=== PATIENT | male | born 1960 | race Caucasian/White ===

== ENCOUNTER → 2018-01-09 | Outpatient (CLI) | payer MEDICARE ==
[~2018-01-09] MED LIST: GABA400 PO; GLIP5 PO; HYDACE10B PO; LORA10 PO; MELO7.5 PO; METF850 PO; Prinivil10 MG PO; SIMV10 PO
== END | disposition home or self-care (01) ==
LOC: LAB SHORT 10:00 → LAB 10:00
PROVIDERS: Nurse Practitioner Adult Health
DX: Z12.5 Encounter for screening for malignant neoplasm of prostate (principal)
CPT/HCPCS: G0103

== ENCOUNTER → 2018-03-13 | Outpatient (CLI) | payer MEDICARE ==
[2018-03-13 10:01] LABS: BASOPHILS PERCENT AUTO 1 % (0-2); EOSINOPHILS ABSOLUTE AUTO 1.49 K/mm3 (0.00-0.68); EOSINOPHILS PERCENT AUTO 14 % (0-6); Hematocrit 34.7 % (37.0-53.0); Hemoglobin 11.1 g/dL (13.5-17.5); IMMATURE GRAN ABSOLUTE AUTO 0.05 K/mm3 (0.00-0.10); IMMATURE GRAN PERCENT AUTO 1 % (0-1); LYMPHOCYTES ABSOLUTE AUTO 1.34 K/mm3 (0.84-5.20); LYMPHOCYTES PERCENT AUTO 12 % (21-46); MONOCYTES ABSOLUTE AUTO 1.51 K/mm3 (0.16-1.47); MONOCYTES PERCENT AUTO 14 % (4-13); Mean Corpuscular HGB 29.1 pg (26.0-34.0); Mean Corpuscular Volume 91 fL (80-100); NEUTROPHILS PERCENT AUTO 59 % (41-73); RDW Coefficient Variation 13.4 % (11.7-14.2); RDW Standard Deviation 44.7 fL (35.1-46.3); Red Blood Cell Count 3.81 M/mm3 (4.30-5.90); White Blood Cell Count 10.99 K/mm3 (4.00-11.30)
[2018-03-13 10:35] LABS: Mean Platelet Volume 9.4 fL (9.1-12.4); Platelet Count 270 K/mm3 (150-400)
[2018-03-13 11:23] LABS: Alanine Aminotransfer (ALT/SGP 17 U/L (12-78); Albumin, Blood 3.1 g/dL (3.4-5.0); Albumin/Globulin Ratio 0.6 (0.8-1.8); Alk Phos 103 U/L (50-136); Anion Gap 6 mmol/L (6-16); Aspartate Aminotrans (AST/SGOT 17 U/L (12-37); Bilirubin, Total 0.3 mg/dL (0.1-1.0); Blood Urea Nitrogen 28 mg/dL (8-24); CO2, Blood 28 mmol/L (21-32); Calcium, Blood 8.8 mg/dL (8.5-10.1); Chloride, Blood 100 mmol/L (98-108); Globulin, Blood 4.8 g/dL (2.2-4.0); Glomerular Filtration Rate >60 (60-); Glucose, Blood 159 mg/dL (70-99); Potassium, Blood 4.8 mmol/L (3.5-5.5); Sodium, Blood 134 mmol/L (136-145); Total Protein, Blood 7.9 g/dL (6.4-8.2)
== END | disposition home or self-care (01) ==
LOC: LAB SHORT 09:49 → LAB EV 09:49
PROVIDERS: Physician Assistant Medical
DX: L03.031 Cellulitis of right toe (principal); J40 Bronchitis, not specified as acute or chronic
CPT/HCPCS: 80053; 85025

== ENCOUNTER → 2019-08-07 | Outpatient (CLI) | payer MEDICARE ==
[~2019-08-07] MED LIST changes: +OXYC1TAB11
== END | disposition home or self-care (01) ==
LOC: LAB SHORT 07:55 → PLD 07:55
DX: L60.2 Onychogryphosis (principal)
CPT/HCPCS: 88305; 88312

== ENCOUNTER 2024-03-04 10:48 | Inpatient (IN) | payer MEDICARE ==
[~2024-03-04] VITALS: Ht 182.9 cm; Wt 90.8 kg
[2024-03-04] MEDS ORDERED: Ketorolac Tromethamine 15mg Vial IV ONE (11:15)
[2024-03-04] MEDS ORDERED: HYDROmorphone HCl/Pf 1MG SYR IV ONE (11:15)
[2024-03-04 11:38] LABS: BASOPHILS ABSOLUTE AUTO 0.13 K/mm3 (0.00-0.23); BASOPHILS PERCENT AUTO 1 % (0-2); EOSINOPHILS PERCENT AUTO 1 % (0-6); Hematocrit 39.2 % (37.0-53.0); Hemoglobin 12.9 g/dL (13.5-17.5); IMMATURE GRAN ABSOLUTE AUTO 0.25 K/mm3 (0.00-0.10); IMMATURE GRAN PERCENT AUTO 1 % (0-1); LYMPHOCYTES ABSOLUTE AUTO 1.75 K/mm3 (0.84-5.20); LYMPHOCYTES PERCENT AUTO 8 % (21-46); MONOCYTES ABSOLUTE AUTO 2.37 K/mm3 (0.16-1.47); MONOCYTES PERCENT AUTO 11 % (4-13); Mean Corpuscular HGB 28.3 pg (26.0-34.0); Mean Corpuscular HGB Conc 32.9 g/dL (31.5-36.5); Mean Corpuscular Volume 86 fL (80-100); Mean Platelet Volume 9.1 fL (9.1-12.4); NEUTROPHILS ABSOLUTE AUTO 17.55 K/mm3 (1.96-9.15); NEUTROPHILS PERCENT AUTO 79 % (41-73); Platelet Count 401 K/mm3 (150-400); RDW Coefficient Variation 13.4 % (11.7-14.2); RDW Standard Deviation 42.5 fL (35.1-46.3); Red Blood Cell Count 4.56 M/mm3 (4.30-5.90); White Blood Cell Count 22.25 K/mm3 (4.00-11.30)
[2024-03-04 12:05] LABS: Albumin, Blood 2.6 g/dL (3.4-5.0); Albumin/Globulin Ratio 0.5 (0.8-1.8); Bilirubin, Total 0.4 mg/dL (0.1-1.0); Bun/Creatinine Ratio 21.5 (12.0-20.0); Calcium, Blood 8.4 mg/dL (8.5-10.1); Creatinine, Blood 0.93 mg/dL (0.60-1.20); Globulin, Blood 5.7 g/dL (2.2-4.0); Potassium, Blood 4.6 mmol/L (3.5-5.5); Total Protein, Blood 8.3 g/dL (6.4-8.2)
[2024-03-04] MEDS ORDERED: Vancomycin HCL 2,000 MG in NS 500 ML IV ONE (13:00)
[2024-03-04] MEDS ORDERED: HYDROmorphone HCl/Pf 1MG SYR IV PRN (13:40)
[2024-03-04] MEDS ORDERED: Cefepime HCl 2,000 MG in NS 100 ML IV SCH (14:00)
[2024-03-04] MEDS ORDERED: BASAGLAR K100 UNIT/8 SC (14:05)
[2024-03-04 16:57] VITALS: BP 83/57
[2024-03-04 16:59] VITALS: BP 120/65
[2024-03-04] MEDS ORDERED: OxyCODONE HCL 5 MG TAB PO PRN (17:40)
--- NOTE | 2024-03-04 17:57 | NUR ---
1638 RECEIVED PT TO RM 362 VIA M[facility] FROM ER. PT ABLE TO TX SELF TO BED. ADMITTED FOR DIABETIC R FOOT ULCER/INFECTION. WOUND STARTED ABOUT 1 WEEK AGO, PER ER REPORT, JOSEFINA BARON. PT TO DR ARIAS TODAY AND SENT TO ER WITH OPEN ULCER. PT STEPPED ON REJI 1.5 MONTHS AGO. R FOOT IS ANGRY RED, SWOLLEN, AND HOT TO TOUCH. PT ADMITTED BY DR HAIRSTON. ARRIVED TO UNIT NPO. DR HAIRSTON NOTIFIED FOR DIET. PT TO BE NPO UNTIL SEEN BY PODIATRY. CONSULT ORDERED PER DR HAIRSTON. DR SANTACRUZ NOTIFIED AT 1725; PT OK TO EAT AND DRINK. DR SANTACRUZ WILL SEE PT TONIGHT. DR HAIRSTON NOTIFIED FOR PAIN MEDICATION AND NICOTINE PATCH; NEW ORDERS PLACED. R FOOT PICTURE TAKEN AND PLACED IN CHART. U/S TECH TO AT THIS TIME, PER ORDERS. PT DENIES FURTHER NEEDS AT THIS TIME. CALL LT IN REACH.
[2024-03-04] MEDS ORDERED: Nicotine 21 MG PATCH TOP SCH (18:20)
[2024-03-04 20:02] VITALS: BP 109/90
[2024-03-04] MEDS ORDERED: Insulin Glargine-Yfgn 100 Unit/mL 3 ML SYR SC SCH (21:00)
[2024-03-04] MEDS ORDERED: NS 250 ML IV PRN (23:55)
[2024-03-05] VITALS (13 sets, daily range): BP systolic 103–139; BP diastolic 61–102
[2024-03-05] MEDS ORDERED: Insulin Regular 100 UNIT/ML 10ML Vial SC SCH
[2024-03-05] MEDS ORDERED: Vancomycin HCL 1,250 MG in NS 250 ML IV SCH (01:00)
[2024-03-05 05:52] LABS: BASOPHILS ABSOLUTE AUTO 0.11 K/mm3 (0.00-0.23); BASOPHILS PERCENT AUTO 1 % (0-2); EOSINOPHILS ABSOLUTE AUTO 0.66 K/mm3 (0.00-0.68); EOSINOPHILS PERCENT AUTO 4 % (0-6); Hematocrit 36.8 % (37.0-53.0); Hemoglobin 11.8 g/dL (13.5-17.5); IMMATURE GRAN ABSOLUTE AUTO 0.17 K/mm3 (0.00-0.10); IMMATURE GRAN PERCENT AUTO 1 % (0-1); LYMPHOCYTES ABSOLUTE AUTO 1.68 K/mm3 (0.84-5.20); LYMPHOCYTES PERCENT AUTO 11 % (21-46); MONOCYTES PERCENT AUTO 11 % (4-13); Mean Corpuscular HGB Conc 32.1 g/dL (31.5-36.5); Mean Corpuscular Volume 87 fL (80-100); NEUTROPHILS ABSOLUTE AUTO 10.94 K/mm3 (1.96-9.15); NEUTROPHILS PERCENT AUTO 72 % (41-73); Platelet Count 366 K/mm3 (150-400); RDW Coefficient Variation 13.7 % (11.7-14.2); RDW Standard Deviation 44.1 fL (35.1-46.3); Red Blood Cell Count 4.22 M/mm3 (4.30-5.90); White Blood Cell Count 15.26 K/mm3 (4.00-11.30)
--- NOTE | 2024-03-05 06:29 | NUR ---
Shift Summary Pt. seen by Dr. Prince this shift who put him on the surgery schedule today for I&D. Pt has been NPO except for pain medicine since 0000. While Dr. Prince was in the room I clarified code status with the pt who states he wishes to remain full code. His R foot is still very painful, especially during and after ambulation to the bathroom. Medicated for pain per EMAR, pain well managed by PO medications and rest. He rcvd glargine at night we checked his blood sugars Q6 as he has Q6 Humalin coverage. He rcvd 2 units at 0000. He slept well t/o the night. AOx4, able to ambulate with 1 SBA, no acute changes.
[2024-03-05 06:36] LABS: Albumin, Blood 2.3 g/dL (3.4-5.0); Albumin/Globulin Ratio 0.4 (0.8-1.8); Bilirubin, Total 0.3 mg/dL (0.1-1.0); Bun/Creatinine Ratio 23.5 (12.0-20.0); Calcium, Blood 8.7 mg/dL (8.5-10.1); Creatinine, Blood 1.19 mg/dL (0.60-1.20); Globulin, Blood 5.2 g/dL (2.2-4.0); Potassium, Blood 4.3 mmol/L (3.5-5.5); Total Protein, Blood 7.5 g/dL (6.4-8.2)
[2024-03-05] MEDS ORDERED: Nicotine 21 MG PATCH TOP SCH (09:00)
[2024-03-05] MEDS ORDERED: Heparin Sodium,Porcine 5,000 UNIT/0.5 ML SDV SC SCH (09:00)
[2024-03-05] MEDS ORDERED: Atorvastatin 10 MG Tab PO SCH (09:00)
[2024-03-05 12:52] LABS: Vancomycin, Random 19.9 ug/mL
[2024-03-05] MEDS ORDERED: Vancomycin HCL 2,000 MG in NS 500 ML IV SCH (13:00)
--- NOTE | 2024-03-05 16:29 | NUR ---
SHIFT SUMMARY PT RESTING QUIETLY, WATCHING TV, DURING SHIFT REPORT. PT STILL WAITING FOR I&D THIS AFTERNOON. PT HAS BEEN NPO SINCE DINNER YESTERDAY. MEDICATED FOR C/O SEVERE PAIN TO R FOOT. PT REPORTS BEING UNABLE TO GET ON TOP OF PAIN. PLEASANT AND CO-OP WITH CARE. FAMILY IN RM TO VISIT IN AM AND AGAIN THIS AFTERNOON. DENTAL HYGIENIST IN TO SPEAK WITH PT EARLIER; DENTURE CUP AND SUPPLIES PROVIDED. IV ABX GIVEN THRU OUT THE DAY PER EMAR. NO FURTHER NEEDS AT THIS TIME. CALL LT IN REACH.
[2024-03-05] MEDS ORDERED: Lactated Ringer's 1,000 ML IV ONE (17:05)
[2024-03-05] MEDS ORDERED: TRULICITY3 MG/0.5 M SC (17:15)
--- NOTE | 2024-03-05 17:25 | NUR ---
INTO PACU/PRE-OP, CAOX4, VSS, CHEMBG 68. POOR CIRC TO FINGERS, COOL, DELAYED CAP REFILL, CONFIRMS NPO, CONFIRMS PLANNED SURGERY
[2024-03-05] MEDS ORDERED: Lidocaine HCL 1% 10 ML MDV ONE (17:34)
[2024-03-05] MEDS ORDERED: Bupivacaine 0.5% Inj 10 ML Vial ONE (17:34)
[2024-03-05] MEDS ORDERED: propofoL 20 ML IV ONE (17:39)
[2024-03-05] MEDS ORDERED: Lidocaine HCl 2% 20 ML MDV ONE (17:40)
[2024-03-05] MEDS ORDERED: FentaNYL Citrate 50 MCG/ML 2 ML Injection ONE (17:56)
--- NOTE | 2024-03-05 18:09 | NUR ---
1730 PT TAKEN DOWN TO OR FOR I&D ON R FOOT. PT ABLE TO TX SELF TO [facility] WHEN TAKEN DOWN. NIDIA CALLED TO CK ON PT; UPDATE GIVEN.
[2024-03-05] MEDS ORDERED: Ondansetron HCl 2 MG / ML 2ML Vial ONE (18:15)
[2024-03-06 02:02] VITALS: BP 131/76
--- NOTE | 2024-03-06 06:17 | NUR ---
Shift Summary Pt returned from PACU at the start of the shift. VSS t/o the recovery period, slight fever and elevated BP in the beginning. He was hypoglycemic in the PACU, they gave him juice while there and then I gave him a sandwitch and gatorade once he arrived here. By 2019 pt's BG was 107, his 0000 BG was 224 and he recieved 2 units regular insulin per sliding scale. Pt did c/o R foot pain once never block wore off, medicated per emar. He slept well t/o most of the night, using the urinal at the bedside to stay off his foot. He is AOx4, slept well t/o some of the night.
[2024-03-06 07:54] VITALS: BP 130/79
[2024-03-06 08:56] LABS: BASOPHILS ABSOLUTE AUTO 0.17 K/mm3 (0.00-0.23); BASOPHILS PERCENT AUTO 1 % (0-2); EOSINOPHILS ABSOLUTE AUTO 0.69 K/mm3 (0.00-0.68); EOSINOPHILS PERCENT AUTO 4 % (0-6); Hematocrit 33.1 % (37.0-53.0); Hemoglobin 10.9 g/dL (13.5-17.5); IMMATURE GRAN ABSOLUTE AUTO 0.32 K/mm3 (0.00-0.10); IMMATURE GRAN PERCENT AUTO 2 % (0-1); LYMPHOCYTES ABSOLUTE AUTO 2.18 K/mm3 (0.84-5.20); LYMPHOCYTES PERCENT AUTO 11 % (21-46); MONOCYTES ABSOLUTE AUTO 2.37 K/mm3 (0.16-1.47); MONOCYTES PERCENT AUTO 12 % (4-13); Mean Corpuscular HGB 28.2 pg (26.0-34.0); Mean Corpuscular HGB Conc 32.9 g/dL (31.5-36.5); Mean Corpuscular Volume 86 fL (80-100); Mean Platelet Volume 9.1 fL (9.1-12.4); NEUTROPHILS ABSOLUTE AUTO 14.16 K/mm3 (1.96-9.15); NEUTROPHILS PERCENT AUTO 71 % (41-73); Platelet Count 353 K/mm3 (150-400); RDW Coefficient Variation 13.7 % (11.7-14.2); RDW Standard Deviation 42.9 fL (35.1-46.3); Red Blood Cell Count 3.87 M/mm3 (4.30-5.90); White Blood Cell Count 19.89 K/mm3 (4.00-11.30)
[2024-03-06 09:11] LABS: Bun/Creatinine Ratio 26.1 (12.0-20.0); Calcium, Blood 8.3 mg/dL (8.5-10.1); Potassium, Blood 4.4 mmol/L (3.5-5.5)
[2024-03-06] MEDS ORDERED: Benzonatate 100 MG Cap PO PRN (11:40)
[2024-03-06 14:43] VITALS: BP 116/65
[2024-03-06] MEDS ORDERED: Insulin Regular 100 UNIT/ML 10ML Vial SC SCH (16:30)
--- NOTE | 2024-03-06 16:48 | NUR ---
THIS NURSE CALLED TO CLARIFY WOUND CARE/DRESSING ORDER. PROVIDER REQUESTED A CALL TO BE MADE TO . THIS NURSE CALLED AND WAS UNABLE TO MAKE CONTACT. CALL UNANSWERED AT THIS TIME.
--- NOTE | 2024-03-06 18:15 | NUR ---
SHIFT SUMMARY PT A&OX4, VSS, AMB W/ SBA, TOLERATING PO, VOIDING, AND PAIN MANAGED PER EMAR. NO UPDATE FROM PRIOR NOTE ABOUT WOUND CARE/DRESSING ORDER CLARIFICATION. PT WORKED W/ PT/OT THIS SHIFT AND TOLERATED IT WELL. NO OTHER ACUTE CHANGES. CALL LIGHT WITHIN REACH AND PT ABLE TO MAKE NEEDS KNOWN.
[2024-03-06 21:16] VITALS: BP 92/57
[2024-03-07 04:44] VITALS: BP 105/69
[2024-03-07 05:52] LABS: BASOPHILS ABSOLUTE AUTO 0.15 K/mm3 (0.00-0.23); BASOPHILS PERCENT AUTO 1 % (0-2); EOSINOPHILS ABSOLUTE AUTO 0.99 K/mm3 (0.00-0.68); EOSINOPHILS PERCENT AUTO 7 % (0-6); Hematocrit 32.1 % (37.0-53.0); Hemoglobin 10.4 g/dL (13.5-17.5); IMMATURE GRAN ABSOLUTE AUTO 0.35 K/mm3 (0.00-0.10); IMMATURE GRAN PERCENT AUTO 2 % (0-1); LYMPHOCYTES ABSOLUTE AUTO 2.51 K/mm3 (0.84-5.20); LYMPHOCYTES PERCENT AUTO 17 % (21-46); MONOCYTES ABSOLUTE AUTO 1.62 K/mm3 (0.16-1.47); MONOCYTES PERCENT AUTO 11 % (4-13); Mean Corpuscular HGB 27.4 pg (26.0-34.0); Mean Corpuscular HGB Conc 32.4 g/dL (31.5-36.5); Mean Corpuscular Volume 85 fL (80-100); Mean Platelet Volume 8.9 fL (9.1-12.4); NEUTROPHILS PERCENT AUTO 62 % (41-73); Platelet Count 333 K/mm3 (150-400); RDW Coefficient Variation 13.4 % (11.7-14.2); Red Blood Cell Count 3.79 M/mm3 (4.30-5.90); White Blood Cell Count 14.92 K/mm3 (4.00-11.30)
[2024-03-07 06:22] LABS: Bun/Creatinine Ratio 20.9 (12.0-20.0); C-REACTIVE PROTEIN, EXT RANGE 14.6 mg/dL (0.000-0.300); Calcium, Blood 8.8 mg/dL (8.5-10.1); Creatinine, Blood 1.1 mg/dL (0.60-1.20); Potassium, Blood 4.5 mmol/L (3.5-5.5)
--- NOTE | 2024-03-07 06:29 | NUR ---
SHIFT SUMMARY PATIENT TALKATIVE AND RECEPTIVE TO CARE. PATIENT APPEARED TO BE COMFORTABLE, WATCHING TV PROGRAMS. PATIENT WAS POLOITE AND SOCIAL WITH STAFF AND RECEPTIVE TO CARE. APPEARED TO SLEEP ON AND OFF THROUGH THE NIGHT. BED ON LOW POSITON, RAILS TIMES 2, CALL LIGHT WITHIN REACH.
[2024-03-07 07:33] VITALS: BP 136/76
--- NOTE | 2024-03-07 10:05 | NUR ---
THIS NURSE SPOKE TO TO INQUIRE ABOUT WOUND CARE/DRESSING ORDER. PER PROVIDER, DR. ARIAS IS TO ROUND ON PT TODAY TO ASSESS WOUND.
[2024-03-07 13:50] LABS: Vancomycin, Trough 16.4 ug/mL (5.0-10.0)
[2024-03-07 14:41] VITALS: BP 123/76
--- NOTE | 2024-03-07 17:51 | NUR ---
SHIFT SUMMARY FROM IR WAS CONSULTED AND ROUNDED ON THE PT. PT DECLINED INTERVENTION AT THIS TIME, SEE PROVIDER CONSULT NOTE. ROUNDED ON PT WELL AND CHANGED THE PT'S DRESSING. WOUND CARE ORDER RECEIVED AND IN EMAR. PAIN MANAGED PER EMAR. NO OTHER ACUTE CHANGES THIS SHIFT. CALL LIGHT WITHIN REACH AND PT ABLE TO MAKE NEEDS KNOWN.
[2024-03-07 19:53] VITALS: BP 128/64
[2024-03-08 03:05] VITALS: BP 126/64
[2024-03-08 05:13] LABS: Hematocrit 31.3 % (37.0-53.0); Hemoglobin 10.4 g/dL (13.5-17.5); Mean Corpuscular HGB Conc 33.2 g/dL (31.5-36.5); Mean Corpuscular Volume 84 fL (80-100); Mean Platelet Volume 9.3 fL (9.1-12.4); Platelet Count 352 K/mm3 (150-400); RDW Coefficient Variation 13.2 % (11.7-14.2); Red Blood Cell Count 3.72 M/mm3 (4.30-5.90); White Blood Cell Count 13.56 K/mm3 (4.00-11.30)
[2024-03-08 05:31] LABS: Bun/Creatinine Ratio 23.3 (12.0-20.0); Calcium, Blood 8.7 mg/dL (8.5-10.1); Creatinine, Blood 0.99 mg/dL (0.60-1.20); Potassium, Blood 4.2 mmol/L (3.5-5.5)
--- NOTE | 2024-03-08 05:31 | NUR ---
SHIFT SUMMARY PATIENT ALERT AND ORIENTATED TIMES 4. PATIENT REQUESTED OXY FOR PAIN AND ABLE TO MAKE NEEDS MET.PATIENT WAS SOCIAL WITH STAFF AND RECEPTIVE TO CARE. PATIENT APPEARED TO SLEEP ON AND OFF THROUGH THE NIGHT. BED IN LOW POSITION, RAILS TIMES 2, AND CALL LIGHT WITH IN REACH.
[2024-03-08 05:49] LABS: BAND PERCENT MAN 3 % (0-8); BASOPHILS ABSOLUTE MAN 0.13 K/mm3 (0.00-0.23); BASOPHILS PERCENT MAN 1 % (0-2); EOSINOPHILS ABSOLUTE MAN 1.22 K/mm3 (0.00-0.68); EOSINOPHILS PERCENT MAN 9 % (0-6); LYMPHOCYTES ABSOLUTE MAN 1.49 K/mm3 (0.84-5.20); LYMPHOCYTES PERCENT MAN 11 % (21-46); METAMYELOCYTE ABSOLUTE MAN 0.54 K/mm3 (0.00-0.00); METAMYELOCYTE PERCENT MAN 4 % (0-0); MONOCYTES ABSOLUTE MAN 1.22 K/mm3 (0.16-1.47); MONOCYTES PERCENT MAN 9 % (4-13); MYELOCYTE PERCENT MAN 3 % (0-0); NEUTROPHILS ABSOLUTE MAN 8.54 K/mm3 (1.96-9.15); SEG NEUTROPHILS PERCENT MAN 60 % (41-73); TOTAL CELLS COUNTED 100
[2024-03-08 07:34] VITALS: BP 126/74
[2024-03-08 15:52] VITALS: BP 116/76
--- NOTE | 2024-03-08 17:42 | NUR ---
SHIFT SUMMARY WOUND CARE/DRESSING CHANGE COMPLETED THIS SHIFT. PT AMB SEVERAL TIMES T/O SHIFT AND WAS ABLE TO SHOWER. PAIN MANAGED PER EMAR. NO OTHER ACUTE CHANGES. CALL LIGHT WITHIN REACH AND PT ABLE TO MAKE NEEDS KNOWN.
[2024-03-08 19:49] VITALS: BP 122/69
[2024-03-09 02:18] VITALS: BP 102/64
--- NOTE | 2024-03-09 04:11 | NUR ---
SHIFT SUMMARY PATIENT HAD NO ACUTE CHANGES. AXO X4 AND SBA TO BR. DENIES CHEST PAIN, SOB, AND N/V. VSS/AFEBRILE. REPORTED RIGHT FOOT PAIN X ONE AND OXYCODONE 5 MG GIVEN PER EMAR. PATIENT ABLE TO SLEEP WITH PAIN MANAGED. CBG 288. PIV INTACT. IV ABX INFUSED. CALL LIGHT IN REACH. BED IN LOWEST POSITION. WILL CONTINUE TO MONITOR UNTIL DAY SHIFT NURSE ASSUMES CARE.
[2024-03-09 05:06] LABS: Hematocrit 33.6 % (37.0-53.0); Mean Corpuscular HGB 27.8 pg (26.0-34.0); Mean Corpuscular HGB Conc 32.7 g/dL (31.5-36.5); Mean Corpuscular Volume 85 fL (80-100); Mean Platelet Volume 8.9 fL (9.1-12.4); Platelet Count 349 K/mm3 (150-400); RDW Coefficient Variation 13.2 % (11.7-14.2); RDW Standard Deviation 41.3 fL (35.1-46.3); Red Blood Cell Count 3.96 M/mm3 (4.30-5.90)
[2024-03-09 05:33] LABS: BAND PERCENT MAN 4 % (0-8); BASOPHILS PERCENT MAN 0 % (0-2); EOSINOPHILS ABSOLUTE MAN 0.57 K/mm3 (0.00-0.68); EOSINOPHILS PERCENT MAN 4 % (0-6); LYMPHOCYTES ABSOLUTE MAN 2.44 K/mm3 (0.84-5.20); LYMPHOCYTES PERCENT MAN 17 % (21-46); METAMYELOCYTE ABSOLUTE MAN 0.72 K/mm3 (0.00-0.00); METAMYELOCYTE PERCENT MAN 5 % (0-0); MONOCYTES ABSOLUTE MAN 1.87 K/mm3 (0.16-1.47); MONOCYTES PERCENT MAN 13 % (4-13); MYELOCYTE ABSOLUTE MAN 0.57 K/mm3 (0.00-0.00); MYELOCYTE PERCENT MAN 4 % (0-0); SEG NEUTROPHILS PERCENT MAN 53 % (41-73); TOTAL CELLS COUNTED 100
[2024-03-09 05:37] LABS: C-REACTIVE PROTEIN, EXT RANGE 7.15 mg/dL (0.000-0.300); Calcium, Blood 9.2 mg/dL (8.5-10.1); Potassium, Blood 4.3 mmol/L (3.5-5.5)
[2024-03-09 07:19] VITALS: BP 134/71
[2024-03-09 12:23] LABS: Vancomycin, Trough 17.8 ug/mL (5.0-10.0)
[2024-03-09 15:11] VITALS: BP 164/82
--- NOTE | 2024-03-09 18:16 | NUR ---
REPORT RECEIVED VERIFIED, A/O VSS , PT WAS VERY PLEASENT TODAY AND WAS AN UNEVENTFULL DAY. DRESSINGG TO RIGHT FOOT CHANGED PT FAVIOLA WELL WITH MINIMAL PAIN. RIGHT FOOT WAS CLEANSED WITH CLEANING SOLUTION ALLOWED TO DRY THEN PACK WITH 10 INCH MEDICATED PACKING ORDERED, COVERED WITH 4X4 KERLIX AND MANFRED BANDAGE. PT IS APPROPRIATE AND ABLE TO MAKE NEEDS KNOWN, I HAVENT SEEN PT OOB BUT HAS BEEN USING URNIAL.
[2024-03-09 19:41] VITALS: BP 126/75
[2024-03-09] MEDS ORDERED: Lactobacil 2-S.Thermo-Bifido 1 1 Cap PO SCH (21:00)
[2024-03-10 03:20] VITALS: BP 136/87
--- NOTE | 2024-03-10 04:23 | NUR ---
SHIFT SUMMARY PATIENT HAD NO ACUTE CHANGES. AXOX 4, USES URINAL AT BEDSIDE. DENIES CHEST PAIN, SOB, AND N/V. REPORTED RIGHT FOOT PAIN X ONE AND OXYCODONE 5 MG GIVEN PER EMAR. PIV INTACT. IV ABX INFUSED. CBG 264. SLEPT MOST OF THE SHIFT. REPORTS FEELING MUCH BETTER. CALL LIGHT IN REACH. BED IN LOWEST POSITION. WILL CONTINUE TO MONITOR UNTIL DAY SHIFT NURSE ASSUMES CARE.
[2024-03-10 05:13] LABS: Hematocrit 34.6 % (37.0-53.0); Hemoglobin 11.2 g/dL (13.5-17.5); Mean Corpuscular HGB 27.5 pg (26.0-34.0); Mean Corpuscular HGB Conc 32.4 g/dL (31.5-36.5); Mean Corpuscular Volume 85 fL (80-100); Mean Platelet Volume 9.2 fL (9.1-12.4); Platelet Count 362 K/mm3 (150-400); RDW Coefficient Variation 13.4 % (11.7-14.2); RDW Standard Deviation 41.5 fL (35.1-46.3); Red Blood Cell Count 4.08 M/mm3 (4.30-5.90); White Blood Cell Count 14.57 K/mm3 (4.00-11.30)
[2024-03-10 05:35] LABS: BAND PERCENT MAN 10 % (0-8); BASOPHILS ABSOLUTE MAN 0.14 K/mm3 (0.00-0.23); BASOPHILS PERCENT MAN 1 % (0-2); EOSINOPHILS ABSOLUTE MAN 0.14 K/mm3 (0.00-0.68); EOSINOPHILS PERCENT MAN 1 % (0-6); LYMPHOCYTES ABSOLUTE MAN 2.03 K/mm3 (0.84-5.20); LYMPHOCYTES PERCENT MAN 14 % (21-46); METAMYELOCYTE ABSOLUTE MAN 0.29 K/mm3 (0.00-0.00); METAMYELOCYTE PERCENT MAN 2 % (0-0); MONOCYTES ABSOLUTE MAN 1.45 K/mm3 (0.16-1.47); MONOCYTES PERCENT MAN 10 % (4-13); MYELOCYTE ABSOLUTE MAN 0.29 K/mm3 (0.00-0.00); MYELOCYTE PERCENT MAN 2 % (0-0); NEUTROPHILS ABSOLUTE MAN 10.19 K/mm3 (1.96-9.15); SEG NEUTROPHILS PERCENT MAN 60 % (41-73); TOTAL CELLS COUNTED 100
[2024-03-10 05:44] LABS: Bun/Creatinine Ratio 25.6 (12.0-20.0); C-REACTIVE PROTEIN, EXT RANGE 5.92 mg/dL (0.000-0.300); Calcium, Blood 9.5 mg/dL (8.5-10.1); Creatinine, Blood 0.9 mg/dL (0.60-1.20); Potassium, Blood 4.3 mmol/L (3.5-5.5)
[2024-03-10 08:00] VITALS: BP 122/70
[2024-03-10 15:04] VITALS: BP 134/75
--- NOTE | 2024-03-10 16:26 | NUR ---
REPORT RECEIVED VERIFIED, A/O, PT LOOKING FORWARD TO GOING HOME TODAY, STATES HE FEELS REALLY GOOD. I DISCUSSED WITH THE PT THAT HIS LABS STILL DIDNT REFLEX A SAFE DISCHARGE PT STATED IF HE NEEDED TO STAY THAT WOULD BE OK. IN TO SEE PT AND STATED ITS BETTER HE STATED. NEW IV STARTED IN ORDER TO CONT ANTIBIOTICS. DRESSING CHANGE DONE WELL PICTURES IN CHARGE, WOUND WAS C/D/I WITH MINIMAL DISCHARGE. PT ABLE TO MAKE NEEDS KNOWN
[2024-03-10 19:14] VITALS: BP 131/76
[2024-03-11 04:12] VITALS: BP 130/76
--- NOTE | 2024-03-11 04:16 | NUR ---
SHIFT SUMMARY PATIENT HAD NO ACUTE CHANGES. AXOX 4 AND SBA TO BR. USES URINAL AT BEDSIDE. CBG 275. REPORTED RIGHT FOOT PAIN X ONE AND OXYCODONE 5 MG GIVEN PER EMAR. DENIES CHEST PAIN, SOB, AND N/V. VSS/AFEBRILE. CALL LIGHT IN REACH. BED IN LOWEST POSITION. WILL CONTINUE TO MONITOR UNTIL DAY SHIFT NURSE ASSUMES CARE.
[2024-03-11 07:06] LABS: Hematocrit 36.1 % (37.0-53.0); Mean Corpuscular HGB Conc 33.2 g/dL (31.5-36.5); Mean Corpuscular Volume 84 fL (80-100); Mean Platelet Volume 8.9 fL (9.1-12.4); Platelet Count 367 K/mm3 (150-400); RDW Coefficient Variation 13.3 % (11.7-14.2); RDW Standard Deviation 41.2 fL (35.1-46.3); Red Blood Cell Count 4.28 M/mm3 (4.30-5.90); White Blood Cell Count 14.75 K/mm3 (4.00-11.30)
[2024-03-11 07:19] LABS: Bun/Creatinine Ratio 24.4 (12.0-20.0); C-REACTIVE PROTEIN, EXT RANGE 3.93 mg/dL (0.000-0.300); Calcium, Blood 9.1 mg/dL (8.5-10.1); Creatinine, Blood 0.9 mg/dL (0.60-1.20); Potassium, Blood 4.4 mmol/L (3.5-5.5)
[2024-03-11 07:26] LABS: BAND PERCENT MAN 3 % (0-8); BASOPHILS PERCENT MAN 0 % (0-2); EOSINOPHILS ABSOLUTE MAN 1.18 K/mm3 (0.00-0.68); EOSINOPHILS PERCENT MAN 8 % (0-6); LYMPHOCYTES ABSOLUTE MAN 1.47 K/mm3 (0.84-5.20); LYMPHOCYTES PERCENT MAN 10 % (21-46); METAMYELOCYTE ABSOLUTE MAN 0.73 K/mm3 (0.00-0.00); METAMYELOCYTE PERCENT MAN 5 % (0-0); MONOCYTES ABSOLUTE MAN 0.59 K/mm3 (0.16-1.47); MONOCYTES PERCENT MAN 4 % (4-13); MYELOCYTE ABSOLUTE MAN 0.14 K/mm3 (0.00-0.00); MYELOCYTE PERCENT MAN 1 % (0-0); NEUTROPHILS ABSOLUTE MAN 10.62 K/mm3 (1.96-9.15); SEG NEUTROPHILS PERCENT MAN 69 % (41-73); TOTAL CELLS COUNTED 100
[2024-03-11 07:54] VITALS: BP 142/72
[2024-03-11 15:09] VITALS: BP 151/78
--- NOTE | 2024-03-11 18:06 | NUR ---
NO CHANGE IN PT CONDITION, HAS BEEN VERY HELPFUL AND AT PT SIDE. PT WAS A LITTLE MORE CONFUSED AND PULLING AT LINES SO IT WAS DECIDED TO GIVE LACTOLOSE WELL COVER FOR PAIN SINCE PT HAS A HARD TIME EXPRESSING NEEDS. PT STILL VERY YELLOW AND ABD DRAIN SEEMS TO BE LEAKING A LITTLE. PLEURLX PARACENTISIS DONE PER PROTOCOL 1100MLS OF YELLOW SEROUS FLUID REMOVED, PT FAVIOLA WELL, NEW CAP PLACED IN STERILE MANNER AND DRESSED. PT SEEMS MORE CALM NOW AND HAS HAD FAMILY AND FRIENDS AT BEDSIDE ALL DAY. WILL CALL IF NEEDING ANYTHING.
--- NOTE | 2024-03-11 18:13 | NUR ---
REPORT RECEIVED VERIFED PT A/O VERY PLEASENT AND INDEPENDANT IN ROOM USES WALKER TO GET AROUND AND UNDERSTANDS THAT ONLY 50% OR WEIGHT IS RECOMMENDED ON HIS RIGHT FOOT. SURGEN INTO CHANGE DRESSING, NO NEW ORDERS GIVEN. PT POSSIBLY GOING HOME TOMORROW BUT WAS DISCUSSING POSSIBLE NEED FOR WOUND VAC BEFORE DC.
--- NOTE | 2024-03-11 18:13 | NUR ---
PREVIOUS NOTE IS ON WRONG PT
[2024-03-11 19:44] VITALS: BP 141/72
[2024-03-12 02:53] VITALS: BP 115/69
--- NOTE | 2024-03-12 05:09 | NUR ---
TRAVEL TICKETING REVIEWER NOTE PATIENT IS A&OX4, VITALS ARE STABELE, ON ROOM AIR, NO TELE. PATIENT COMPLAINED OF PAIN TWICE DURING THE SHIFT AND PRN PAIN MEDS WERE GIVEN, PATIENT HAD ELEVATED BLOOD GLUCOSE IN THE 400S. INSULINE WERE GIVEN ORDERED. PATIENT IS INDEPENDENT IN ROOM, CALLS APPROPRIATELY. PLAN POSSIBLE D/C TODAY BUT MAY NEED A WOUND VAC TO RIGHT FOOT ABSCESS BEFORE D/C
[2024-03-12 05:44] LABS: Albumin, Blood 2.3 g/dL (3.4-5.0); Albumin/Globulin Ratio 0.5 (0.8-1.8); Bilirubin, Total 0.3 mg/dL (0.1-1.0); Bun/Creatinine Ratio 22.2 (12.0-20.0); Calcium, Blood 8.9 mg/dL (8.5-10.1); Creatinine, Blood 0.95 mg/dL (0.60-1.20); Globulin, Blood 5.1 g/dL (2.2-4.0); Potassium, Blood 4.9 mmol/L (3.5-5.5); Total Protein, Blood 7.4 g/dL (6.4-8.2)
[2024-03-12 06:09] LABS: Hematocrit 38.2 % (37.0-53.0); Hemoglobin 12.6 g/dL (13.5-17.5); Mean Corpuscular HGB 27.9 pg (26.0-34.0); Mean Corpuscular Volume 85 fL (80-100); Mean Platelet Volume 8.8 fL (9.1-12.4); Platelet Count 377 K/mm3 (150-400); RDW Coefficient Variation 13.4 % (11.7-14.2); RDW Standard Deviation 41.3 fL (35.1-46.3); Red Blood Cell Count 4.52 M/mm3 (4.30-5.90); White Blood Cell Count 16.12 K/mm3 (4.00-11.30)
[2024-03-12 06:36] LABS: BAND PERCENT MAN 6 % (0-8); BASOPHILS PERCENT MAN 0 % (0-2); EOSINOPHILS PERCENT MAN 5 % (0-6); LYMPHOCYTES % ATYPICAL MANUAL 1 % (0-0); LYMPHOCYTES ABSOLUTE MAN 1.45 K/mm3 (0.84-5.20); LYMPHOCYTES PERCENT MAN 8 % (21-46); METAMYELOCYTE ABSOLUTE MAN 0.48 K/mm3 (0.00-0.00); METAMYELOCYTE PERCENT MAN 3 % (0-0); MONOCYTES ABSOLUTE MAN 1.93 K/mm3 (0.16-1.47); MONOCYTES PERCENT MAN 12 % (4-13); MYELOCYTE ABSOLUTE MAN 0.32 K/mm3 (0.00-0.00); MYELOCYTE PERCENT MAN 2 % (0-0); NEUTROPHILS ABSOLUTE MAN 11.12 K/mm3 (1.96-9.15); SEG NEUTROPHILS PERCENT MAN 63 % (41-73); TOTAL CELLS COUNTED 100
[2024-03-12 07:17] VITALS: BP 116/69
[2024-03-12] MEDS ORDERED: Insulin Glargine-Yfgn 100 Unit/mL 3 ML SYR SC SCH (13:00)
[2024-03-12 15:21] VITALS: BP 131/77
[2024-03-12] MEDS ORDERED: Insulin Regular 100 UNIT/ML 10ML Vial SC SCH (16:30)
--- NOTE | 2024-03-12 16:36 | NUR ---
SHIFT SUMMARY; PATIENT REMAINS ON BEDREST DURING DAY ONLY GETTING UP TO USE RESTROOM. HE IS A 50% TOUCH ON HIS RIGHT FOOT PER ORDER. CAME TO ROOM TO SEE PATIENT THIS EARLY AFTERNOON AND PATIENT AGREES THAT HE WOULD LIKE A CONSULT FOR REVASC OF HIS RIGHT LEG. NEW ORDER RECEIVED FOR LONG ACTING INSULIN BID INSTEAD OF DAILY. HIS VITAL SIGNS ARE STABLE AND HE IS NOT FEBRILE. HIS LUNGS ARE CLEAR AND HE IS AO X 4. PATIENT HAS GOOD APPETITE AND USES CALL LIGHT APPROPRIATELY.
[2024-03-12 19:40] VITALS: BP 119/65
[2024-03-13 02:28] VITALS: BP 138/68
--- NOTE | 2024-03-13 06:25 | NUR ---
SILICA FILTER OPERATOR PATIENT IS A&OX4, VITALS ARE STABLE, ON ROOM AIR, NOT ON TELE, COMPLAINED OF PAIN, PRN PAIN MED GIVEN. PATIENT IS INDEPEDENT IN ROOM AND IS ABLE TO MAKE NEEDS KNOWN. PATIENT BLOOD GLUCOSE DURING THE SHIFT WAS 409, LONF AND SHORT ACTING INSULIN WERE GIVEN ACCORDING TO PARAMATERS.
[2024-03-13 07:42] VITALS: BP 154/81
[2024-03-13] MEDS ORDERED: NICO21TP TOP (10:42)
[2024-03-13] MEDS ORDERED: ATOR20 PO (10:42)
[2024-03-13] MEDS ORDERED: OXYC5 PO (10:43)
[2024-03-13] MEDS ORDERED: INSULIN LI100 UNIT/6 SC (10:44)
[2024-03-13] MEDS ORDERED: SULTRIDS PO (10:44)
== END 2024-03-13 16:51 | disposition home or self-care (01) | DRG 854 ==
LOC: ER 10:48 → MEDS 15:57 → ENPENDDIS 03-13 10:15 → MEDS 03-13 16:51
PROVIDERS: Emergency Medicine; Internal Medicine; Podiatrist; ADMIT Internal Medicine
PROC: 3E03329 Introduction of Other Anti-infective into Peripheral Vein, Percutaneous Approach (ICD-10-PCS; 2024-03-04)
PROC: 0JBQ0ZZ Excision of Right Foot Subcutaneous Tissue and Fascia, Open Approach (ICD-10-PCS; principal; 2024-03-05 17:00)
DX: A41.9 Sepsis, unspecified organism (principal); I96 Gangrene, not elsewhere classified; L02.611 Cutaneous abscess of right foot; L03.115 Cellulitis of right lower limb; E11.621 Type 2 diabetes mellitus with foot ulcer; E11.51 Type 2 diabetes mellitus with diabetic peripheral angiopathy without gangrene; E78.5 Hyperlipidemia, unspecified; F17.210 Nicotine dependence, cigarettes, uncomplicated; G25.81 Restless legs syndrome; J43.9 Emphysema, unspecified; E11.69 Type 2 diabetes mellitus with other specified complication; B96.20 Unspecified Escherichia coli [E. coli] as the cause of diseases classified elsewhere; B95.8 Unspecified staphylococcus as the cause of diseases classified elsewhere; B95.1 Streptococcus, group B, as the cause of diseases classified elsewhere; K21.9 Gastro-esophageal reflux disease without esophagitis; L97.512 Non-pressure chronic ulcer of other part of right foot with fat layer exposed; Z71.6 Tobacco abuse counseling; E11.65 Type 2 diabetes mellitus with hyperglycemia; Z89.421 Acquired absence of other right toe(s); E11.628 Type 2 diabetes mellitus with other skin complications; I10 Essential (primary) hypertension; M54.9 Dorsalgia, unspecified; G89.29 Other chronic pain; E66.9 Obesity, unspecified; Z88.0 Allergy status to penicillin; Z79.84 Long term (current) use of oral hypoglycemic drugs; Z79.811 Long term (current) use of aromatase inhibitors; Z79.891 Long term (current) use of opiate analgesic; Z79.899 Other long term (current) drug therapy; Z68.27 Body mass index [BMI] 27.0-27.9, adult
CPT/HCPCS: 36415; 73630; 80048; 80053; 80202; 82947; 83036; 83605; 85025; 85651; 86140; 87040; 87070; 87075; 87076; 87077; 87147; 87185; 87186; 87205; 93922; 96365; 96375; 97110; 97116; 97161; 97165; 97530; 97535; 99284-25; A9270; J0692; J1170; J1644; J1815; J1885; J2001; J2405; J2704; J3010; J3370; J7040; J7050; J7120

== ENCOUNTER 2024-09-21 13:35 | Inpatient (IN) | payer MEDICARE, OTHER ==
[~2024-09-21] VITALS: Ht 182.9 cm; Wt 90.2 kg
[~2024-09-21 13:35] MED LIST changes: +ATOR20 PO; +BASAGLAR K100 UNIT/8 SC; +INSULIN LI100 UNIT/6 SC; +NICO21TP TOP; +OXYC5 PO; +SULTRIDS PO; +TRULICITY3 MG/0.5 M SC
[2024-09-21] MEDS ORDERED: Cefepime HCl 2,000 MG in NS 100 ML IV ONE (14:15)
[2024-09-21] MEDS ORDERED: Vancomycin HCL 2,000 MG in NS 520 ML IV ONE (14:15)
[2024-09-21 14:30] LABS: C-REACTIVE PROTEIN, EXT RANGE 10.4 mg/dL (0.000-0.300)
[2024-09-21 14:32] LABS: Albumin/Globulin Ratio 0.3 (0.8-1.8); BASOPHILS ABSOLUTE AUTO 0.17 K/mm3 (0.00-0.23); BASOPHILS PERCENT AUTO 1 % (0-2); Bilirubin, Total 0.2 mg/dL (0.1-1.0); Bun/Creatinine Ratio 29.2 (12.0-20.0); Calcium, Blood 8.8 mg/dL (8.5-10.1); Creatinine, Blood 0.82 mg/dL (0.60-1.20); EOSINOPHILS ABSOLUTE AUTO 0.61 K/mm3 (0.00-0.68); EOSINOPHILS PERCENT AUTO 3 % (0-6); Globulin, Blood 6.1 g/dL (2.2-4.0); Hematocrit 33.5 % (37.0-53.0); Hemoglobin 11.2 g/dL (13.5-17.5); IMMATURE GRAN ABSOLUTE AUTO 0.39 K/mm3 (0.00-0.10); IMMATURE GRAN PERCENT AUTO 2 % (0-1); LYMPHOCYTES ABSOLUTE AUTO 2.22 K/mm3 (0.84-5.20); LYMPHOCYTES PERCENT AUTO 12 % (21-46); MONOCYTES ABSOLUTE AUTO 1.38 K/mm3 (0.16-1.47); MONOCYTES PERCENT AUTO 7 % (4-13); Mean Corpuscular HGB 26.8 pg (26.0-34.0); Mean Corpuscular HGB Conc 33.4 g/dL (31.5-36.5); Mean Corpuscular Volume 80 fL (80-100); Mean Platelet Volume 9.2 fL (9.1-12.4); NEUTROPHILS ABSOLUTE AUTO 14.59 K/mm3 (1.96-9.15); NEUTROPHILS PERCENT AUTO 75 % (41-73); Platelet Count 469 K/mm3 (150-400); Potassium, Blood 4.7 mmol/L (3.5-5.5); RDW Coefficient Variation 14.2 % (11.7-14.2); RDW Standard Deviation 41.3 fL (35.1-46.3); Red Blood Cell Count 4.18 M/mm3 (4.30-5.90); Total Protein, Blood 8.1 g/dL (6.4-8.2); White Blood Cell Count 19.36 K/mm3 (4.00-11.30)
[2024-09-21] MEDS ORDERED: FLU VACC TS2024-25(6MOS UP)/PF 45 MCG/0.5 ML SYRINGE IM PRN (15:25)
[2024-09-21] MEDS ORDERED: FentaNYL Citrate 50 MCG/ML 2 ML Injection IV ONE (15:40)
[2024-09-21] MEDS ORDERED: HYDROcodone 5-APAP 325 TAB PO PRN (16:25)
[2024-09-21] MEDS ORDERED: Lactated Ringer's 1,000 ML IV SCH ×2 (16:25)
[2024-09-21] MEDS ORDERED: FentaNYL Citrate 50 MCG/ML 2 ML Injection IV PRN (16:25)
[2024-09-21] MEDS ORDERED: Nicotine 21 MG PATCH TOP SCH (16:32)
[2024-09-21] MEDS ORDERED: Lactated Ringer's 1,000 ML IV ONE (16:35)
[2024-09-21] MEDS ORDERED: Insulin Regular 100 UNIT/ML 10ML Vial SC SCH (17:00)
[2024-09-21 18:56] VITALS: BP 130/75
--- NOTE | 2024-09-21 19:25 | NUR ---
assumed care of pt. arrived a/o x4 with pain 02/16 pt medicated per sep. pics taken of wound. wound is open to air and foul in smell with moderate drainage. report off to molder vacuum
[2024-09-21 19:28] VITALS: BP 131/74
[2024-09-21] MEDS ORDERED: Lactobacil 2-S.Thermo-Bifido 1 1 Cap PO SCH (21:00)
[2024-09-21] MEDS ORDERED: Insulin Glargine-Yfgn 100 Unit/mL 3 ML SYR SC SCH (21:00)
[2024-09-21 23:24] VITALS: BP 124/72
[2024-09-22] MEDS ORDERED: Cefepime HCl 1,000 MG in NS 100 ML IV SCH
[2024-09-22 03:37] VITALS: BP 117/76
[2024-09-22] MEDS ORDERED: Vancomycin HCL 1,500 MG in NS 250 ML IV SCH (04:00)
[2024-09-22 04:42] LABS: BASOPHILS ABSOLUTE AUTO 0.14 K/mm3 (0.00-0.23); BASOPHILS PERCENT AUTO 1 % (0-2); EOSINOPHILS ABSOLUTE AUTO 0.48 K/mm3 (0.00-0.68); EOSINOPHILS PERCENT AUTO 3 % (0-6); Hematocrit 32.3 % (37.0-53.0); Hemoglobin 10.3 g/dL (13.5-17.5); IMMATURE GRAN ABSOLUTE AUTO 0.28 K/mm3 (0.00-0.10); IMMATURE GRAN PERCENT AUTO 2 % (0-1); LYMPHOCYTES ABSOLUTE AUTO 2.58 K/mm3 (0.84-5.20); LYMPHOCYTES PERCENT AUTO 15 % (21-46); MONOCYTES ABSOLUTE AUTO 1.48 K/mm3 (0.16-1.47); MONOCYTES PERCENT AUTO 8 % (4-13); Mean Corpuscular HGB 25.6 pg (26.0-34.0); Mean Corpuscular HGB Conc 31.9 g/dL (31.5-36.5); Mean Corpuscular Volume 80 fL (80-100); Mean Platelet Volume 8.7 fL (9.1-12.4); NEUTROPHILS ABSOLUTE AUTO 12.71 K/mm3 (1.96-9.15); NEUTROPHILS PERCENT AUTO 72 % (41-73); Platelet Count 413 K/mm3 (150-400); RDW Coefficient Variation 14.2 % (11.7-14.2); RDW Standard Deviation 41.2 fL (35.1-46.3); Red Blood Cell Count 4.02 M/mm3 (4.30-5.90); White Blood Cell Count 17.67 K/mm3 (4.00-11.30)
[2024-09-22 05:03] LABS: Bun/Creatinine Ratio 35.6 (12.0-20.0); Calcium, Blood 8.9 mg/dL (8.5-10.1); Creatinine, Blood 0.68 mg/dL (0.60-1.20); Potassium, Blood 4.6 mmol/L (3.5-5.5)
--- NOTE | 2024-09-22 05:11 | NUR ---
SHIFT ASSESSMENT PT A&O X4, CALM, COOPERATIVE TO CARE. HR IN THE 60'S-70'S, SINUS RHYTHM, HE DENIES CP/PRESSURE, NUMB/TINGLING, SBP STABLE. 02 >92% ON RA, DENIES SOB. PT WITH HX OF RIGHT TOE AMPUTATION. PT WITH SWELLING, REDNESS, AND PURULENT DRAINAGE OF THE WOUND ON THE TOP OF THE FOOT NEAR 2ND TOE, AND BLOOD FROM THE ULCER ON THE BOTTOM OF THE FOOT. PT WITH SEVERE PAIN 8/10 OF THE FOOT, MEDICATED PER EMAR. PODIATRY TO BEDSIDE TO EXAM FOOT. FOOT WAS CLEANSED, CULTURE OF WOUND COLLECTED, FOOT WRAPPED. PER PODIATRY FOOT TO STAY WRAPPED UNTIL MONDAY WHEN PT HAS PROCEDURE, DENIES WANT FOR WOUND CARE ORDERS. PER PTS ORDER PT TO STAY NPO UNTIL BG BELOW 250, PTS BG WAS BELOW 250, DISCUSSED WITH RESIDENT. BG ORDERES CAHNGES TO ACHS AND FAST ACTING INSULIN ORDERS CHANGED FROM Q4 TO TID. PT RESTING IN BED AT THIS TIME. HE DENIES QUESTIONS OR CONCERNS. WILL MONITOR AND REPORT TO ONCOMING NURSE.
[2024-09-22 07:30] VITALS: BP 110/71
[2024-09-22] MEDS ORDERED: Insulin Human Lispro 100 Units/ML 3ML Syringe SC SCH (07:30)
--- NOTE | 2024-09-22 07:40 | NUR ---
ASSUMPTION NOTE: THIS RN TO ASSUME CARE OF PATIENT. PATIENT IS WATCHING TV & DRINKING COFFEE. VITAL SIGN TAKEN, PATIENT STABLE. DENIED CHEST PAIN/PRESSURE. PATIENT STATED8 OUT OF 10 PAIN AND REQUESTING PAIN MEDICATIONS THAT WILL BE BROUGHT IN WITH MORNING MEDICATIONS. ANTIBIOTICS STARTED, PATIENT HAS CALL LIGHT WITHIN REACH, BED IN LOWEST POSITION AND DENYING ANY NEEDS AT THIS TIME.
[2024-09-22] MEDS ORDERED: Enoxaparin 40 MG/0.4 ML SYR SC SCH (09:00)
--- NOTE | 2024-09-22 10:45 | NUR ---
MD TO BEDSIDE: MD TO BEDSIDE TO GO OVER PLAN OF CARE WITH PATIENT. MD AWARE THAT PT JUST RETURNED FROM MRI AND AWAITING RESULTS. PATIENT IS NOW MEDICAL WITHOUT TELE STATUS AND PATIENT WAS NOTIFED.
[2024-09-22 15:25] VITALS: BP 130/86
--- NOTE | 2024-09-22 18:03 | NUR ---
SHIFT SUMMARY: PATIENT IS MEDICAL WITHOUT TELE STATUS. PATIENT IS ALERT AND ORIENTED X4 AND ACTIVE IN HIS CARE, IS ABLE TO MAKE NEEDS KNOWN AND USES CALL LIGHT APPROPRIATELY. SATTING >92% ON ROOM AIR, EVEN AND UNLABORED RESPIRATIONS AT REST. DENIED CHEST PAIN/PRESSURE THROUGHOUT SHIFT. PATIENT HAD AN MRI OF THE RIGHT FOOT DONE, SEE RESULTS IN CHART. WILL BECOME NPO AT MIDNIGHT FOR SURGERY IN THE MORNING, PATIENT AWARE. PATIENT WAS MEDICATED PER EMAR FOR 8/10 RIGHT FOOT PAIN THROUGHOUT THE SHIFT. IS STAND BY ASSIST TO MANGE LINES/CHORDS. PATIENT WAS GIVEN INSULIN PER EMAR FOR BLOOD SUGARS THROUGHOUT THE SHIFT. SHOWERED INDEPDENTLY TODAY AND AWAITING A TRANSFER TO [facility] FLOOR. PATIENT HAS CALL LIGHT WITHIN REACH, BED IN LOWEST POSITION AND STATING NOTHING ELSE IS NEEDED AT THIS TIME.
--- NOTE | 2024-09-22 18:27 | NUR ---
TRANSFER NOTE: PATIENT WENT TO SURGICAL FLOOR VIA WHEEL CHAIR. ALL PERSONAL BELONGINGS AND MEDICATIONS TAKEN. REPORT GIVEN TO RECEIVING RN PRIOR TO ARRIVAL. PATIENT VANCO GIVEN TO RN AND NOTIFIED THERE WAS 100ML'S REMAINING. PATIENT IS ALERT AND ORIENTED X4 AND ACTIVE IN HIS CARE.
[2024-09-22 19:04] VITALS: BP 127/64
[2024-09-23] VITALS (16 sets, daily range): BP systolic 98–143; BP diastolic 58–84
[2024-09-23 03:23] LABS: BASOPHILS ABSOLUTE AUTO 0.14 K/mm3 (0.00-0.23); BASOPHILS PERCENT AUTO 1 % (0-2); EOSINOPHILS ABSOLUTE AUTO 0.64 K/mm3 (0.00-0.68); EOSINOPHILS PERCENT AUTO 6 % (0-6); Hematocrit 34.5 % (37.0-53.0); Hemoglobin 10.8 g/dL (13.5-17.5); IMMATURE GRAN ABSOLUTE AUTO 0.21 K/mm3 (0.00-0.10); IMMATURE GRAN PERCENT AUTO 2 % (0-1); LYMPHOCYTES ABSOLUTE AUTO 2.17 K/mm3 (0.84-5.20); LYMPHOCYTES PERCENT AUTO 20 % (21-46); MONOCYTES ABSOLUTE AUTO 0.99 K/mm3 (0.16-1.47); MONOCYTES PERCENT AUTO 9 % (4-13); Mean Corpuscular HGB 25.3 pg (26.0-34.0); Mean Corpuscular HGB Conc 31.3 g/dL (31.5-36.5); Mean Corpuscular Volume 81 fL (80-100); Mean Platelet Volume 8.5 fL (9.1-12.4); NEUTROPHILS ABSOLUTE AUTO 6.57 K/mm3 (1.96-9.15); NEUTROPHILS PERCENT AUTO 61 % (41-73); Platelet Count 406 K/mm3 (150-400); RDW Coefficient Variation 14.4 % (11.7-14.2); RDW Standard Deviation 42.2 fL (35.1-46.3); Red Blood Cell Count 4.27 M/mm3 (4.30-5.90); White Blood Cell Count 10.72 K/mm3 (4.00-11.30)
[2024-09-23 03:43] LABS: Bun/Creatinine Ratio 30.8 (12.0-20.0); Calcium, Blood 8.5 mg/dL (8.5-10.1); Creatinine, Blood 0.75 mg/dL (0.60-1.20); Potassium, Blood 4.3 mmol/L (3.5-5.5)
[2024-09-23 03:46] LABS: Vancomycin, Trough 28.2 ug/mL (5.0-10.0)
--- NOTE | 2024-09-23 05:40 | NUR ---
PT A&O X4, VS WNL, PT NPO SINCE [place] FOR SURGERY THIS DAY. PT REQUIRES PAIN MEDS FOR RT FOOT PAIN D/T OSTEOMYLITIS. PT GIVEN NORCO X1, AND FENTENYL X2 IVP. PT WITH ELEVATED VANC TROUGH DO PX D/C IV VANCOMYCIN. PT INDEPENDENT WITH MOBILITY. CBG 247 AT HS ONLY RECIEVED LONG ACTING INSULIN. DRESSING INTACT, AND NO DRAINAGE NOTED THIS SHIFT, BUT DOES HAVE FOUL ODOR.
[2024-09-23] MEDS ORDERED: propofoL 20 ML IV ONE (11:34)
[2024-09-23] MEDS ORDERED: FentaNYL Citrate 50 MCG/ML 2 ML Injection ONE (11:34)
[2024-09-23] MEDS ORDERED: Lactated Ringer's 1,000 ML IV SCH (11:35)
[2024-09-23] MEDS ORDERED: Dexamethasone Sod Phos 10 MG/ML 1ML VIAL ONE (11:35)
[2024-09-23] MEDS ORDERED: Ondansetron HCl 2 MG / ML 2ML Vial ONE (11:35)
--- NOTE | 2024-09-23 11:44 | NUR ---
PT HAS 20G IV TO RIGHT HAND THAT LEAKS. WILL START ANOTHER IV PRIOR TO ROLL BACK TO OR.
--- NOTE | 2024-09-23 11:46 | NUR ---
11:35: pt was transported to the OR via surgical gurney, accompanied by two RN's.
[2024-09-23] MEDS ORDERED: Lidocaine HCl 2% 10 ML SDA ONE (11:47)
[2024-09-23] MEDS ORDERED: Bupivacaine 0.5% HCl 5 MG/ML 30MLVIAL ONE (11:47)
--- NOTE | 2024-09-23 11:52 | NUR ---
PT BROUGHT FROM FLOOR TO DAY SURGERY FOR PROCEDURE. History, Chart, Medications and Allergies reviewed before start of procedure. Lungs clear T/O to Auscultation. Patient confirms NPO status and agrees with scheduled surgery. Pre-Op teaching done. Pt verbalizes understanding. PT BELONGINGS LEFT IN PERSONAL ROOM ON SURGICAL FLOOR. PT DENTURES LEFT IN PLACE PER ANESTHESIA.
--- NOTE | 2024-09-23 12:00 | NUR ---
REPORT GIVEN TO EMMA BARON TO ASSUME CARE AT THIS TIME.
[2024-09-23] MEDS ORDERED: Midazolam HCl 1MG / ML 2ML Vial IV ONE (12:05)
[2024-09-23] MEDS ORDERED: Midazolam HCl 1MG / ML 2ML Vial ONE (12:05)
--- NOTE | 2024-09-23 12:28 | NUR ---
PT RETURNED TO ROOM FROM DIALYSIS AT APROX 1228
[2024-09-23] MEDS ORDERED: ePHEDrine Sulfate 50 MG/ML 1ML Injection ONE (12:33)
--- NOTE | 2024-09-23 12:37 | NUR ---
09/23/24 1237 Kenny Mensah PT ON SCHEDULED ANTIBIOTICS AND RECIEVED PRIOR TO ARRIVAL TO OR.
[2024-09-23] MEDS ORDERED: Phenylephrine HCl 100 MCG/ML-NS 10MLSYR (1MG/10ML) ONE (12:41)
--- NOTE | 2024-09-23 14:21 | NUR ---
PT ARRIVED BACK TO UNIT AT APROX 1420 FROM PACU. MANFRED WRAP TO RLE C/D/I. PT REPORTS PAIN 8/10-MEDICATED PER EMAR. VSS UPON ARRIVAL TO UNIT
--- NOTE | 2024-09-23 17:53 | NUR ---
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 HE IS A&O X4. TOLERATING PO INTAKE. PAIN MEDICATION IS PROVIDING GOOD PAIN CONTROL. HE IS NON-WEIGHT BEARING TO THE RIGHT FOOT, PREVIOUSLY INDEPENDENT IN THE ROOM. HE IS PLEASANT AND COOPERATIVE WITH CARE. CONTINENT OF URINE/BOWEL. ROOM AIR. IV TO THE LEFT HAND. HISTORY OF RESTLESS LEG SYNDROME WITH FAINT PULSES TO THE LEFT ANKLE. RN GAVE REPORT TO NURSE MILLER.
--- NOTE | 2024-09-23 18:22 | NUR ---
ASSUMPTION OF CARE THIS RN ASSUMED CARE AT APPROX 1800. NO ACUTE CHANGES SINCE GIANCARLO RNs NOTE. PATIENT WATCHING TV AFTER EATING DINNER - DENIES PAIN OR OTHER NEEDS AT THIS TIME. DRESSING TO R FOOT C/D/I - NO SHADOWING NOTED. CALL LIGHT IN REACH.
--- NOTE | 2024-09-23 19:33 | NUR ---
CALL TO HOSPITALIST. CALL PLACED TO PROVIDER REGARDING PT'S INCREASED PAIN POST OP. NEW ORDERS RECEIVED FOR NORCO 5325 1-2 TABS Q4 PRN. ORDERS UPDATED IN EMAR.
[2024-09-23] MEDS ORDERED: HYDROcodone 5-APAP 325 TAB PO PRN (19:35)
--- NOTE | 2024-09-23 20:45 | NUR ---
CALL TO HOSPITALIST. NOTIFIED PROVIDER OF BLOOD SUGAR OF 434 MG/DL. PT HAD AM DOSE OF LONG ACTING HELD FOR NPO RELATED TO PROCEDURE. NO NEW ORDERS RECEIVED. THIS RN TO MEDICATE PER EMAR FOR LONG ACTING AND QUICK ACTING INSULIN.
[2024-09-23 22:49] LABS: Vancomycin, Random 14.4 ug/mL
[2024-09-23] MEDS ORDERED: Vancomycin HCL 1,750 MG in NS 500 ML IV SCH (23:00)
[2024-09-24 00:01] VITALS: BP 144/84
[2024-09-24] MEDS ORDERED: OxyCODONE HCL 5 MG TAB PO PRN (03:20)
--- NOTE | 2024-09-24 03:20 | NUR ---
CALL TO HOSPITALIST. PT HAVING DIFFICULTY WITH PAIN CONTROL, STATING THAT INCREASE IN NORCO HAS NOT BEEN HELPING. CALL PLACED TO HOSPITALIST REGARDING ABOVE. NEW ORDERS RECEIVED FOR OXYCODONE 5-10MG Q4 HOURS PRN. D/C'D NORCO.
[2024-09-24 03:41] VITALS: BP 125/75
[2024-09-24 04:38] LABS: BASOPHILS ABSOLUTE AUTO 0.03 K/mm3 (0.00-0.23); BASOPHILS PERCENT AUTO 0 % (0-2); EOSINOPHILS PERCENT AUTO 0 % (0-6); Hematocrit 31.4 % (37.0-53.0); IMMATURE GRAN ABSOLUTE AUTO 0.21 K/mm3 (0.00-0.10); IMMATURE GRAN PERCENT AUTO 1 % (0-1); LYMPHOCYTES ABSOLUTE AUTO 1.11 K/mm3 (0.84-5.20); LYMPHOCYTES PERCENT AUTO 6 % (21-46); MONOCYTES ABSOLUTE AUTO 0.95 K/mm3 (0.16-1.47); MONOCYTES PERCENT AUTO 5 % (4-13); Mean Corpuscular HGB 25.6 pg (26.0-34.0); Mean Corpuscular HGB Conc 31.8 g/dL (31.5-36.5); Mean Corpuscular Volume 81 fL (80-100); Mean Platelet Volume 8.8 fL (9.1-12.4); NEUTROPHILS ABSOLUTE AUTO 15.36 K/mm3 (1.96-9.15); NEUTROPHILS PERCENT AUTO 87 % (41-73); Platelet Count 427 K/mm3 (150-400); RDW Coefficient Variation 14.5 % (11.7-14.2); White Blood Cell Count 17.66 K/mm3 (4.00-11.30)
[2024-09-24 04:57] LABS: Bun/Creatinine Ratio 34.3 (12.0-20.0); Calcium, Blood 8.4 mg/dL (8.5-10.1); Creatinine, Blood 0.76 mg/dL (0.60-1.20)
--- NOTE | 2024-09-24 05:53 | NUR ---
SHIFT SUMMARY NOC. PT POD 1 FOR RIGHT TRANSMETATARSAL AMPUTATION. PT A/O X4. DRESSING COVERING RIGHT FOOT IS C/D/I. PT HAD DIFFICULTY WITH PAIN CONTROL THIS SHIFT, SEE PREVIOUS NOTE AND EMAR FOR DETAILS. PT AWAKE MOST OF THE NIGHT. PT REQUESTED SNACKS MULTIPLE TIMES T/O SHIFT. EDUCATION PROVIDED ON HIGH BLOOD SUGAR, SEE PREVIOUS NOTE. PT VOIDING URINE. WILL GIVE REPORT TO ONCOMING SHIFT RN.
[2024-09-24 07:20] VITALS: BP 110/75
--- NOTE | 2024-09-24 10:05 | NUR ---
MORNING NOTE THIS RN ASSUMED CARE AT APPROX 0715. PATIENT ALERT AND ORIENTED X4. COMMUNICATES NEEDS EFFECTIVELY. VSS. POD 1 R FOOT TRANSMETATARSAL. MANAGING PAIN PER EMAR. GAUZE AND MANFRED WRAP DRESSING WITH MINIMAL SEROSANGUINOUS DRAINAGE - OTHERWISE C/D/I. NWB RLE. ENCOURAGING MOBILITY - DECLINED TRANSFER TO CHAIR THIS MORNING. ELEVATED CBG NOTED - GLUCOSE ADMINISTERED PER EMAR. VOIDING. CALL LIGHT IN REACH.
--- NOTE | 2024-09-24 10:10 | NUR ---
ASSUMPTION OF CARE ASSUMED CARE OF THE PATIENT FROM PRIOR DAY RN, PATIENT WAS IN BED AT TIME OF REPORT, PAIN TOLERABLE, DENIES ANY NEEDS. MANFRED WRAP TO R FOOT C/D/I.
--- NOTE | 2024-09-24 10:17 | NUR ---
REPORT GIVEN TO NEETU BARON TO ASSUME CARE AT THIS TIME
[2024-09-24 15:19] VITALS: BP 132/70
--- NOTE | 2024-09-24 16:20 | NUR ---
TRANSFER TO 341 REPORT CALLED TO MEDICAL FLOOR RN FOR PATIENT TO TRANSFER UP TO ROOM 341, PT HAD JUST BEEN MEDICATED FOR PAIN PRIOR TO TRANSFER. PT TAKEN TO NEW ROOM IN HIS BED.
[2024-09-24 16:28] VITALS: BP 128/68
--- NOTE | 2024-09-24 16:35 | NUR ---
PT ARRIVED TO MEDICAL FLOOR, REPORT RECIEVED FROM LORAINE DE ANDA. PT IS ALERT AND ORIENTED X4, ABLE TO EXPRESS NEEDS, RECENTLY TREATED FOR PAIN RLE. WILL CONTINUE TO REASSESS PAIN. NON WEIGHT BEARING ON RLE. PT STATES HE HAS BEEN GOING TO THE BATHROOM INDEPENDENTLY WITH FWW AND HAS MAINTAINED WEIGHT BEARING STATUS.
[2024-09-24] MEDS ORDERED: Insulin Glargine-Yfgn 100 Unit/mL 3 ML SYR SC SCH (21:00)
[2024-09-24 21:15] VITALS: BP 134/79
--- NOTE | 2024-09-25 04:38 | NUR ---
SHIFT SUMMARY ADMITTED FOR RT. DIABETIC FOOT ULCER. FULL CODE. TMA PERFORMED ON 09/23. DR. SANTACRUZ IS PODIATRY CONSULT. ACHS CBG'S - LOW SS. ADA DIET. A&O X4. INDEPENDENT W/FWW - BRP. ON RA. IV ANTIB RX ARE SCHEDULED. DAILY DRESSING CHANGES. PO PAIN RX GIVEN THIS SHIFT. NON WEIGHT BEARING STATUS FOR RIGHT FOOT. IR CONSULT IS DR. BOURGEOIS.
[2024-09-25 04:58] VITALS: BP 141/74
[2024-09-25 05:43] LABS: BASOPHILS ABSOLUTE AUTO 0.11 K/mm3 (0.00-0.23); BASOPHILS PERCENT AUTO 1 % (0-2); EOSINOPHILS ABSOLUTE AUTO 0.41 K/mm3 (0.00-0.68); EOSINOPHILS PERCENT AUTO 3 % (0-6); Hematocrit 30.8 % (37.0-53.0); Hemoglobin 9.7 g/dL (13.5-17.5); IMMATURE GRAN ABSOLUTE AUTO 0.16 K/mm3 (0.00-0.10); IMMATURE GRAN PERCENT AUTO 1 % (0-1); LYMPHOCYTES ABSOLUTE AUTO 3.11 K/mm3 (0.84-5.20); LYMPHOCYTES PERCENT AUTO 24 % (21-46); MONOCYTES ABSOLUTE AUTO 1.05 K/mm3 (0.16-1.47); MONOCYTES PERCENT AUTO 8 % (4-13); Mean Corpuscular HGB 25.5 pg (26.0-34.0); Mean Corpuscular HGB Conc 31.5 g/dL (31.5-36.5); Mean Corpuscular Volume 81 fL (80-100); NEUTROPHILS ABSOLUTE AUTO 8.16 K/mm3 (1.96-9.15); NEUTROPHILS PERCENT AUTO 63 % (41-73); Platelet Count 427 K/mm3 (150-400); RDW Coefficient Variation 14.8 % (11.7-14.2)
[2024-09-25 06:05] LABS: Bun/Creatinine Ratio 25.5 (12.0-20.0); Calcium, Blood 8.5 mg/dL (8.5-10.1); Creatinine, Blood 0.9 mg/dL (0.60-1.20); Potassium, Blood 4.3 mmol/L (3.5-5.5)
[2024-09-25 07:29] VITALS: BP 125/71
[2024-09-25] MEDS ORDERED: CeFAZolin Sodium 2,000 MG in NS 100 ML IV SCH (16:00)
[2024-09-25 16:06] VITALS: BP 128/77
--- NOTE | 2024-09-25 18:39 | NUR ---
SUMMARY NO ACUTE CHANGES THIS SHIFT, DR. SANDOVAL ORDERED CTA ABDOMEN WITH RUN OFF. TREATED PAIN TO RLE PER EMAR. PT NON WEIGHT BEARING ON RLE. PHYSICAL THERAPY IN WITH PATIENT TODAY. ALERT AND ORIENTED X4, CALLS APPROPRIATELY. TREATED CBG PER EMAR. DR. SANTACRUZ AT BEDSIDE TODAY FOR DRESSING CHANGE. NO NEW ORDERS AT THIS TIME.
[2024-09-25 19:44] VITALS: BP 148/73
[2024-09-26 02:53] VITALS: BP 134/78
--- NOTE | 2024-09-26 04:01 | NUR ---
SHIFT SUMMARY ADMITTED FOR RIGHT FOOT DIABETIC ULCER. FULL CODE. TMA PERFORMED ON 09/23. DR. SANTACRUZ IS PODIATRY CONSULT. IR CONSULT PERFORMED CTA W/RUNOFF THIS SHIFT. HE IS A&OX4, NON-WEIGHT BEARING ON RIGHT LEG. ON RA, ADA DIET. ACHS CBG'S - LOW SS. PO PAIN RX GIVEN THIS SHIFT. POWERGLIDE IV IN LUE.
[2024-09-26 06:07] LABS: BASOPHILS ABSOLUTE AUTO 0.12 K/mm3 (0.00-0.23); BASOPHILS PERCENT AUTO 1 % (0-2); EOSINOPHILS ABSOLUTE AUTO 0.67 K/mm3 (0.00-0.68); EOSINOPHILS PERCENT AUTO 5 % (0-6); Hematocrit 30.8 % (37.0-53.0); Hemoglobin 9.9 g/dL (13.5-17.5); IMMATURE GRAN ABSOLUTE AUTO 0.24 K/mm3 (0.00-0.10); IMMATURE GRAN PERCENT AUTO 2 % (0-1); LYMPHOCYTES ABSOLUTE AUTO 2.25 K/mm3 (0.84-5.20); LYMPHOCYTES PERCENT AUTO 18 % (21-46); MONOCYTES ABSOLUTE AUTO 1.07 K/mm3 (0.16-1.47); MONOCYTES PERCENT AUTO 9 % (4-13); Mean Corpuscular HGB 25.8 pg (26.0-34.0); Mean Corpuscular HGB Conc 32.1 g/dL (31.5-36.5); Mean Corpuscular Volume 80 fL (80-100); Mean Platelet Volume 8.8 fL (9.1-12.4); NEUTROPHILS ABSOLUTE AUTO 7.98 K/mm3 (1.96-9.15); NEUTROPHILS PERCENT AUTO 65 % (41-73); Platelet Count 439 K/mm3 (150-400); RDW Coefficient Variation 14.7 % (11.7-14.2); RDW Standard Deviation 42.4 fL (35.1-46.3); Red Blood Cell Count 3.84 M/mm3 (4.30-5.90); White Blood Cell Count 12.33 K/mm3 (4.00-11.30)
[2024-09-26 06:24] LABS: Albumin/Globulin Ratio 0.4 (0.8-1.8); Bilirubin, Total 0.2 mg/dL (0.1-1.0); Bun/Creatinine Ratio 26.3 (12.0-20.0); Calcium, Blood 8.6 mg/dL (8.5-10.1); Creatinine, Blood 0.8 mg/dL (0.60-1.20); Globulin, Blood 5.5 g/dL (2.2-4.0); Potassium, Blood 4.3 mmol/L (3.5-5.5); Total Protein, Blood 7.5 g/dL (6.4-8.2)
[2024-09-26 07:30] VITALS: BP 125/73
[2024-09-26] MEDS ORDERED: NS 250 ML IV PRN (10:00)
[2024-09-26 15:14] VITALS: BP 120/76
--- NOTE | 2024-09-26 17:40 | NUR ---
NO ACUTE CHANGES THIS SHIFT. IV ANTIBIOTICS CONTINUED. TREATED PAIN PER EMAR. NO IV PAIN MEDS GIVEN THIS SHIFT. NON WEIGHT BEARING ON RLE. PT ABLE TO EXPRESS NEEDS. D/C PENDING CULTURES. R/A
[2024-09-26 19:35] VITALS: BP 120/65
[2024-09-27 03:26] VITALS: BP 124/83
[2024-09-27 07:17] VITALS: BP 119/67
[2024-09-27 07:49] LABS: BASOPHILS ABSOLUTE AUTO 0.14 K/mm3 (0.00-0.23); BASOPHILS PERCENT AUTO 1 % (0-2); EOSINOPHILS ABSOLUTE AUTO 0.65 K/mm3 (0.00-0.68); EOSINOPHILS PERCENT AUTO 6 % (0-6); Hemoglobin 9.7 g/dL (13.5-17.5); IMMATURE GRAN ABSOLUTE AUTO 0.34 K/mm3 (0.00-0.10); IMMATURE GRAN PERCENT AUTO 3 % (0-1); LYMPHOCYTES PERCENT AUTO 19 % (21-46); MONOCYTES ABSOLUTE AUTO 1.06 K/mm3 (0.16-1.47); MONOCYTES PERCENT AUTO 9 % (4-13); Mean Corpuscular HGB 25.3 pg (26.0-34.0); Mean Corpuscular HGB Conc 31.3 g/dL (31.5-36.5); Mean Corpuscular Volume 81 fL (80-100); Mean Platelet Volume 8.8 fL (9.1-12.4); NEUTROPHILS ABSOLUTE AUTO 7.43 K/mm3 (1.96-9.15); NEUTROPHILS PERCENT AUTO 63 % (41-73); Platelet Count 446 K/mm3 (150-400); RDW Coefficient Variation 14.7 % (11.7-14.2); RDW Standard Deviation 42.4 fL (35.1-46.3); Red Blood Cell Count 3.84 M/mm3 (4.30-5.90); White Blood Cell Count 11.82 K/mm3 (4.00-11.30)
[2024-09-27 08:15] LABS: Bun/Creatinine Ratio 25.5 (12.0-20.0); Calcium, Blood 8.6 mg/dL (8.5-10.1); Creatinine, Blood 0.78 mg/dL (0.60-1.20); Potassium, Blood 4.2 mmol/L (3.5-5.5)
[2024-09-27] MEDS ORDERED: Cefadroxil500 MG PO (14:50)
[2024-09-27] MEDS ORDERED: NICO21TP TOP (14:50)
[2024-09-27] MEDS ORDERED: VISBIOME 112.51 EACH PO (14:52)
[2024-09-27] MEDS ORDERED: OXYC5 PO (14:52)
--- NOTE | 2024-09-27 15:00 | NUR ---
PT DISCHARGED TO HOME. DISCHARGE INSTRUCTIONS PROVIDED AND EDUCATED ON AT TIME OF DISCHARGE. MEDICATIONS FAXED TO [facility] ON [address]. ALL VALUABLES RETURNED AND SENT HOME WITH THE PT.
== END 2024-09-27 15:10 | disposition home health service (06) | DRG 617 ==
LOC: ER 13:35 → PCU 15:19 → SURS 15:19 → MEDS 15:19 → PCU 09-22 11:05 → SURS 09-22 18:30 → MEDS 09-24 14:02 → SURS 09-24 14:04 → MEDS 09-24 16:23
PROVIDERS: Internal Medicine; Podiatrist Foot & Ankle Surgery; Student in an Organized Health Care Education/Training Program; ADMIT Family Medicine
PROC: 0Y6M0Z0 Detachment at Right Foot, Complete, Open Approach (ICD-10-PCS; principal; 2024-09-23 12:00)
DX: E11.69 Type 2 diabetes mellitus with other specified complication (principal); E87.1 Hypo-osmolality and hyponatremia; M86.8X7 Other osteomyelitis, ankle and foot; M00.9 Pyogenic arthritis, unspecified; L03.115 Cellulitis of right lower limb; L02.611 Cutaneous abscess of right foot; E11.621 Type 2 diabetes mellitus with foot ulcer; E11.628 Type 2 diabetes mellitus with other skin complications; G25.81 Restless legs syndrome; E11.51 Type 2 diabetes mellitus with diabetic peripheral angiopathy without gangrene; E78.5 Hyperlipidemia, unspecified; M54.9 Dorsalgia, unspecified; G89.29 Other chronic pain; F17.210 Nicotine dependence, cigarettes, uncomplicated; L97.519 Non-pressure chronic ulcer of other part of right foot with unspecified severity; D75.839 Thrombocytosis, unspecified; D64.9 Anemia, unspecified; M60.871 Other myositis, right ankle and foot; Z79.85 Long-term (current) use of injectable non-insulin antidiabetic drugs; Z68.25 Body mass index [BMI] 25.0-25.9, adult; Z79.4 Long term (current) use of insulin; Z79.891 Long term (current) use of opiate analgesic; Z98.890 Other specified postprocedural states; Z89.411 Acquired absence of right great toe; Z88.0 Allergy status to penicillin; Z79.2 Long term (current) use of antibiotics; Z79.899 Other long term (current) drug therapy; Z71.6 Tobacco abuse counseling
CPT/HCPCS: 36415; 73630; 73718; 75635; 80048; 80053; 80202; 82947; 83036; 83605; 85025; 85651; 86140; 87040; 87070; 87071; 87075; 87076; 87077; 87147; 87185; 87186; 87205; 88305; 88307; 88311; 93926; 94760; 94762; 96365; 97110; 97161; 97165; 97530; 99285-25; A9270; C1751; J0690; J0692; J1100; J1650; J1815; J2003; J2250; J2371; J2405; J2704; J3010; J3370; J7040; J7050; J7120; Q9967

== ENCOUNTER 2024-10-10 15:17 | Emergency (ER) | payer MEDICARE ==
[~2024-10-10] VITALS: Ht 182.9 cm; Wt 132.9 kg
[~2024-10-10 15:17] MED LIST changes: +Cefadroxil500 MG PO; +VISBIOME 112.51 EACH PO
[2024-10-10 15:53] LABS: BASOPHILS PERCENT AUTO 1 % (0-2); EOSINOPHILS ABSOLUTE AUTO 0.68 K/mm3 (0.00-0.68); EOSINOPHILS PERCENT AUTO 9 % (0-6); Hematocrit 35.3 % (37.0-53.0); IMMATURE GRAN ABSOLUTE AUTO 0.04 K/mm3 (0.00-0.10); IMMATURE GRAN PERCENT AUTO 1 % (0-1); LYMPHOCYTES ABSOLUTE AUTO 1.68 K/mm3 (0.84-5.20); LYMPHOCYTES PERCENT AUTO 22 % (21-46); MONOCYTES PERCENT AUTO 13 % (4-13); Mean Corpuscular HGB 25.1 pg (26.0-34.0); Mean Corpuscular HGB Conc 31.2 g/dL (31.5-36.5); Mean Corpuscular Volume 80 fL (80-100); Mean Platelet Volume 8.7 fL (9.1-12.4); NEUTROPHILS ABSOLUTE AUTO 4.04 K/mm3 (1.96-9.15); NEUTROPHILS PERCENT AUTO 54 % (41-73); Platelet Count 350 K/mm3 (150-400); RDW Standard Deviation 45.8 fL (35.1-46.3); Red Blood Cell Count 4.39 M/mm3 (4.30-5.90); White Blood Cell Count 7.54 K/mm3 (4.00-11.30)
[2024-10-10 16:17] LABS: Albumin, Blood 2.7 g/dL (3.4-5.0); Albumin/Globulin Ratio 0.5 (0.8-1.8); Bilirubin, Total 0.2 mg/dL (0.1-1.0); Bun/Creatinine Ratio 33.7 (12.0-20.0); Creatinine, Blood 0.92 mg/dL (0.60-1.20); Globulin, Blood 5.7 g/dL (2.2-4.0); Potassium, Blood 4.2 mmol/L (3.5-5.5); Total Protein, Blood 8.4 g/dL (6.4-8.2)
[2024-10-10] MEDS ORDERED: Morphine Sulfate 4 MG/1 ML Injection IV ONE (20:00)
[2024-10-10] MEDS ORDERED: Doxycycline Hyclate 100 MG TAB PO ONE (20:50)
[2024-10-10] MEDS ORDERED: DOXY100 PO (21:03)
[2024-10-10 21:45] VITALS: BP 157/81
== END 2024-10-10 21:53 | disposition home or self-care (01) ==
LOC: ER 15:17
PROVIDERS: Emergency Medicine
DX: T81.49XA Infection following a procedure, other surgical site, initial encounter (principal); L03.031 Cellulitis of right toe; I10 Essential (primary) hypertension; E11.9 Type 2 diabetes mellitus without complications; F17.200 Nicotine dependence, unspecified, uncomplicated; Z88.0 Allergy status to penicillin; Z79.2 Long term (current) use of antibiotics; Z79.891 Long term (current) use of opiate analgesic
CPT/HCPCS: 73630; 80053; 85025; 96374; 99283-25; A9270; J2270

== ENCOUNTER 2024-10-29 20:52 | Inpatient (IN) | payer MEDICARE ==
[~2024-10-29] VITALS: Ht 182.9 cm; Wt 88.5 kg
[~2024-10-29 20:52] MED LIST changes: +DOXY100 PO
[2024-10-29] MEDS ORDERED: Morphine Sulfate 4 MG/1 ML Injection IV ONE (21:30)
[2024-10-29] MEDS ORDERED: NS 1,000 ML IV SCH (21:30)
[2024-10-29] MEDS ORDERED: Ketorolac Tromethamine 15mg Vial IV ONE (21:30)
[2024-10-29 21:56] LABS: BASOPHILS PERCENT AUTO 1 % (0-2); EOSINOPHILS ABSOLUTE AUTO 0.39 K/mm3 (0.00-0.68); EOSINOPHILS PERCENT AUTO 3 % (0-6); Hematocrit 33.7 % (37.0-53.0); Hemoglobin 10.7 g/dL (13.5-17.5); IMMATURE GRAN ABSOLUTE AUTO 0.05 K/mm3 (0.00-0.10); IMMATURE GRAN PERCENT AUTO 0 % (0-1); LYMPHOCYTES PERCENT AUTO 10 % (21-46); MONOCYTES ABSOLUTE AUTO 1.15 K/mm3 (0.16-1.47); MONOCYTES PERCENT AUTO 10 % (4-13); Mean Corpuscular HGB 25.6 pg (26.0-34.0); Mean Corpuscular HGB Conc 31.8 g/dL (31.5-36.5); Mean Corpuscular Volume 81 fL (80-100); NEUTROPHILS ABSOLUTE AUTO 8.69 K/mm3 (1.96-9.15); NEUTROPHILS PERCENT AUTO 75 % (41-73); Platelet Count 277 K/mm3 (150-400); RDW Coefficient Variation 17.1 % (11.7-14.2); RDW Standard Deviation 50.4 fL (35.1-46.3); Red Blood Cell Count 4.18 M/mm3 (4.30-5.90); White Blood Cell Count 11.58 K/mm3 (4.00-11.30)
[2024-10-29 22:22] LABS: Albumin, Blood 2.7 g/dL (3.4-5.0); Albumin/Globulin Ratio 0.6 (0.8-1.8); Bilirubin, Total 0.4 mg/dL (0.1-1.0); Bun/Creatinine Ratio 24.2 (12.0-20.0); Calcium, Blood 8.2 mg/dL (8.5-10.1); Creatinine, Blood 0.91 mg/dL (0.60-1.20); Globulin, Blood 4.8 g/dL (2.2-4.0); Potassium, Blood 3.9 mmol/L (3.5-5.5); Total Protein, Blood 7.5 g/dL (6.4-8.2)
[2024-10-30] MEDS ORDERED: Ondansetron HCl 2 MG / ML 2ML Vial IV PRN (01:10)
[2024-10-30] MEDS ORDERED: FentaNYL Citrate 50 MCG/ML 2 ML Injection IV PRN (01:10)
[2024-10-30] MEDS ORDERED: NS 1,000 ML IV SCH (01:10)
[2024-10-30 01:24] VITALS: BP 112/70
[2024-10-30] MEDS ORDERED: Cefepime HCl 1,000 MG in NS 100 ML IV SCH (01:36)
[2024-10-30] MEDS ORDERED: Vancomycin HCL 2,000 MG in NS 500 ML IV ONE (01:45)
[2024-10-30] MEDS ORDERED: LISI5 PO (02:02)
[2024-10-30] MEDS ORDERED: 1/2 NS 250ml250 ML (02:05)
[2024-10-30] MEDS ORDERED: TRULICITY1.5 MG/0.1 SC (02:05)
[2024-10-30] MEDS ORDERED: NS 250 ML IV PRN (03:20)
[2024-10-30 05:02] VITALS: BP 117/69
[2024-10-30 05:27] LABS: BASOPHILS ABSOLUTE AUTO 0.12 K/mm3 (0.00-0.23); BASOPHILS PERCENT AUTO 1 % (0-2); EOSINOPHILS ABSOLUTE AUTO 0.76 K/mm3 (0.00-0.68); EOSINOPHILS PERCENT AUTO 8 % (0-6); Hematocrit 33.9 % (37.0-53.0); Hemoglobin 10.8 g/dL (13.5-17.5); IMMATURE GRAN ABSOLUTE AUTO 0.05 K/mm3 (0.00-0.10); IMMATURE GRAN PERCENT AUTO 1 % (0-1); LYMPHOCYTES ABSOLUTE AUTO 1.51 K/mm3 (0.84-5.20); LYMPHOCYTES PERCENT AUTO 15 % (21-46); MONOCYTES ABSOLUTE AUTO 1.21 K/mm3 (0.16-1.47); MONOCYTES PERCENT AUTO 12 % (4-13); Mean Corpuscular HGB Conc 31.9 g/dL (31.5-36.5); Mean Corpuscular Volume 82 fL (80-100); Mean Platelet Volume 9.1 fL (9.1-12.4); NEUTROPHILS ABSOLUTE AUTO 6.14 K/mm3 (1.96-9.15); NEUTROPHILS PERCENT AUTO 63 % (41-73); Platelet Count 292 K/mm3 (150-400); RDW Coefficient Variation 17.2 % (11.7-14.2); RDW Standard Deviation 51.1 fL (35.1-46.3); Red Blood Cell Count 4.15 M/mm3 (4.30-5.90); White Blood Cell Count 9.79 K/mm3 (4.00-11.30)
[2024-10-30 05:58] LABS: Albumin, Blood 2.6 g/dL (3.4-5.0); Albumin/Globulin Ratio 0.5 (0.8-1.8); Bilirubin, Total 0.3 mg/dL (0.1-1.0); Bun/Creatinine Ratio 22.9 (12.0-20.0); Calcium, Blood 8.3 mg/dL (8.5-10.1); Creatinine, Blood 0.87 mg/dL (0.60-1.20); Globulin, Blood 4.9 g/dL (2.2-4.0); Potassium, Blood 3.8 mmol/L (3.5-5.5); Total Protein, Blood 7.5 g/dL (6.4-8.2)
--- NOTE | 2024-10-30 06:43 | NUR ---
SHIFT SUMMARY PT ARRIVAL FROM ED APPROX 0119. PT ADMITTED D/T INFECTION IN RIGHT FOOT IN SURGICAL SITE. PT HAD RT TOES AMPUTATED 09/23/24. HE IS PLEASANT AND COOPERATIVE WITH CARE. PHOTOS TAKEN AND PLACED IN CHART. PT MEDICATED PER EMAR FOR 8/10 PAIN IN RT FOOT. UPON REASSESSMENT, PT SLEEPING. STATED IT S FEELING A LOT BETTER. PAIN AT 7/10 CURRENTLY. PT NOW SLEEPING IN BED. LIGHTS AND TV OFF. CALL LIGHT IN REACH. REASSESSED FOR PAIN. PT STATED HE WAS FINALLY ABLE TO SLEEP. STATED PAIN WAS AT A 4/10, AND DECLINED FURTHER NEED FOR PAIN COVERAGE AT THIS TIME. REMINDED PT IF PAIN BEGAN TO INCREASE, TO CALL FOR COVERAGE, IF DESIRED. PT STATED UNDERSTANDING. CURRENTLY SITTING IN BED. CALL LIGHT WITHIN REACH.
[2024-10-30 07:08] VITALS: BP 125/73
[2024-10-30] MEDS ORDERED: Insulin Human Lispro 100 Units/ML 3ML Syringe SC SCH ×3 (07:30→12:00)
[2024-10-30] MEDS ORDERED: Insulin Glargine-Yfgn 100 Unit/mL 3 ML SYR SC SCH (09:00)
[2024-10-30] MEDS ORDERED: Nicotine 21 MG PATCH TOP SCH (09:00)
[2024-10-30] MEDS ORDERED: Lisinopril 5 MG Tab PO SCH (09:00)
[2024-10-30 11:48] VITALS: BP 142/70
[2024-10-30] MEDS ORDERED: Vancomycin HCL 1,250 MG in NS 250 ML IV SCH (15:00)
[2024-10-30] MEDS ORDERED: Enoxaparin 40 MG/0.4 ML SYR SC SCH (15:00)
[2024-10-30 16:36] VITALS: BP 114/68
--- NOTE | 2024-10-30 17:07 | NUR ---
PATIENT A/OX4, UP INDEPENDENTLY WITH CANENGOC, ON RA. FENTANYL GIVEN X1 TODAY FOR R FOOT PAIN. POSITIVE BLOOD CULTURES, DR. PONCE NOTIFIED. TELE DC'D. ACHS BLOOD SUGARS, COVERAGE PER SLIDING SCALE. TOLERATING DIABETIC DIET. NPO AT MIDNIGHT TONIGHT FOR SURGERY TOMORROW.
[2024-10-30 19:48] VITALS: BP 140/72
[2024-10-30] MEDS ORDERED: Lactobacil 2-S.Thermo-Bifido 1 1 Cap PO SCH (21:00)
[2024-10-31] VITALS (17 sets, daily range): BP systolic 110–153; BP diastolic 56–86
--- NOTE | 2024-10-31 05:38 | NUR ---
PT SLEPT INTERMITTENTLY THROUGH THE NIGHT. MEDICATED FOR PAIN WITH FENTANYL PER EMAR. PT NPO AFTER MIDNIGHT FOR SURGERY THIS MORNING. IV ANTIBIOTICS CONTINUE PER ORDER. FOOT WOUNDS HEALTH ASSISTANT, NO DRAINAGE NOTED. PT UP TO BATHROOM INDEPENDENTLY WITH CANE. BED IN LOWEST POSITION, CALL LIGHT WITHIN REACH, SIDERAILS UP X2.
[2024-10-31 05:59] LABS: BASOPHILS PERCENT AUTO 1 % (0-2); EOSINOPHILS PERCENT AUTO 7 % (0-6); Hematocrit 32.9 % (37.0-53.0); Hemoglobin 10.3 g/dL (13.5-17.5); IMMATURE GRAN ABSOLUTE AUTO 0.03 K/mm3 (0.00-0.10); IMMATURE GRAN PERCENT AUTO 0 % (0-1); LYMPHOCYTES ABSOLUTE AUTO 1.19 K/mm3 (0.84-5.20); LYMPHOCYTES PERCENT AUTO 16 % (21-46); MONOCYTES ABSOLUTE AUTO 0.96 K/mm3 (0.16-1.47); MONOCYTES PERCENT AUTO 13 % (4-13); Mean Corpuscular HGB 25.8 pg (26.0-34.0); Mean Corpuscular HGB Conc 31.3 g/dL (31.5-36.5); Mean Corpuscular Volume 83 fL (80-100); Mean Platelet Volume 9.2 fL (9.1-12.4); NEUTROPHILS ABSOLUTE AUTO 4.62 K/mm3 (1.96-9.15); NEUTROPHILS PERCENT AUTO 62 % (41-73); Platelet Count 275 K/mm3 (150-400); RDW Coefficient Variation 16.9 % (11.7-14.2); RDW Standard Deviation 51.1 fL (35.1-46.3); Red Blood Cell Count 3.99 M/mm3 (4.30-5.90)
[2024-10-31 06:22] LABS: Bun/Creatinine Ratio 23.4 (12.0-20.0); Calcium, Blood 8.6 mg/dL (8.5-10.1); Creatinine, Blood 0.81 mg/dL (0.60-1.20); Potassium, Blood 3.9 mmol/L (3.5-5.5)
--- NOTE | 2024-10-31 07:50 | NUR ---
ASSUMPTION OF CARE: ASSUMED CARE OF PATIENT. AWAKE ASLEEP DURING SHIFT CHANGE REPORT; UP USING BATHROOM. NPO IN ANTICIPATION OF PODIATRY PROCEDURE TODAY. SEUN ROONEY, TO ASSUME CARE OF PATIENT FOR REMAINDER OF SHIFT. BED IN LOWEST POSITION. CALL LIGHT WITHIN REACH. NO ACUTE NEEDS.
[2024-10-31] MEDS ORDERED: D5W-1/2NS 1,000 ML IV SCH (09:05)
[2024-10-31] MEDS ORDERED: Dextrose 50% 50 ML Syringe IV PRN (09:20)
[2024-10-31] MEDS ORDERED: Lidocaine HCl 2% 10 ML SDA ONE (10:41)
[2024-10-31] MEDS ORDERED: Bupivacaine 0.5% Inj 10 ML Vial ONE (10:41)
[2024-10-31] MEDS ORDERED: Lactated Ringer's 1,000 ML IV SCH (11:45)
--- NOTE | 2024-10-31 12:06 | NUR ---
PT HAS 20G IV TO LEFT HAND THAT FLUSHES WELL AND FLOWS TO GRAVITY.
[2024-10-31] MEDS ORDERED: FentaNYL Citrate 50 MCG/ML 2 ML Injection ONE (12:09)
[2024-10-31] MEDS ORDERED: Midazolam HCl 1MG / ML 2ML Vial ONE (12:09)
[2024-10-31] MEDS ORDERED: FentaNYL Citrate 50 MCG/ML 5 ML Injection ONE (12:09)
[2024-10-31] MEDS ORDERED: propofoL 20 ML IV ONE (12:09)
--- NOTE | 2024-10-31 12:10 | NUR ---
PT BROUGHT FROM FLOOR TO DAY SURGERY FOR PROCEDURE. History, Chart, Medications and Allergies reviewed before start of procedure. Lungs clear T/O to Auscultation. Patient confirms NPO status and agrees with scheduled surgery. Pre-Op teaching done. Pt verbalizes understanding. PT PREOP BLOOD SUGAR WAS 68 - REPORTED TO ANESTHESIA, OKAY TO PROCEED. PER DR COSTA ANESTHESIA, HE WILL TX IN THE OR. PT BELONGINGS LEFT IN PERSONAL ROOM ON MEDICAL FLOOR FOR SAFEKEEPING. PT DENTURES TAKEN TO PACU FOR SAFEKEEPING.
--- NOTE | 2024-10-31 12:13 | NUR ---
0700 ASSUMED CARE OF PT. PT UP TO BR WITHOUT NEEDING ASSISTANCE, USES CANE. PT NPO SINCE MIDNIGHT FOR PLANNED SURG THIS AM. PT TYPE 2 DIABETIC. BLOOD SUGAR NOT DONE AT 0600, PER LAB WORK AT 0530 BLOOD SUGAR 55. RECHECKED BLOOD SUGAR 55 PT NOT SYMPTOMATIC. MD NOTIFIED OF BLOOD SUGAR AND LONG ACTING INSULIN HELD. NEW ORDERS TO START FLUIDS AND CHANGE LANTUS TO PM. PRN GIVEN FOR PAIN WITH GOOD RELIEF. PT LEFT TO SURGERY AT 1155, SALINE LOCKED. PT AWARE HE WILL BE GOING TO SURGICAL FLOOR AFTER PROCEDURE.
[2024-10-31] MEDS ORDERED: Phenylephrine HCl 100 MCG/ML-NS 10MLSYR (1MG/10ML) ONE (12:47)
--- NOTE | 2024-10-31 13:06 | NUR ---
10/31/24 1306 Kenny Mensah PT ON SCHEDULED ANTIBIOTICS AND RECIEVED PRIOR TO ARRIVAL TO OR. PT HAD IV IN LEFT HAND THAT WAS INFILTRATED UPON ARRIVAL TO OR. NEW IV STARTED BY DR COSTA IN RIGHT INNER FOREARM. PT TOLERATED THIS WELL. 20G.
[2024-10-31] MEDS ORDERED: ePHEDrine Sulfate 50 MG/ML 1ML Injection ONE (13:07)
[2024-10-31] MEDS ORDERED: Ondansetron HCl 2 MG / ML 2ML Vial ONE (13:12)
[2024-10-31] MEDS ORDERED: Metoclopramide HCl 5MG / ML 2ML Vial ONE (13:12)
[2024-10-31] MEDS ORDERED: FentaNYL Citrate 50 MCG/ML 2 ML Injection IV PRN ×2 (13:20)
[2024-10-31] MEDS ORDERED: HYDROmorphone HCl/Pf 1MG SYR IV PRN ×2 (13:20)
[2024-10-31] MEDS ORDERED: Ondansetron HCl 2 MG / ML 2ML Vial IV PRN (13:20)
[2024-10-31] MEDS ORDERED: NS 250 ML IV PRN (14:10)
--- NOTE | 2024-10-31 14:36 | NUR ---
ARRIVAL PT ARRIVED TO UNIT FROM PACU. REPORT RECIEVED FROM MEDICAL FLOOR RN PRIOR TO ARRIVAL PT ORIENTED X4 BUT SLIGHTLY TIRED. DENIES PAIN AT THIS TIME. R FOOT WITH MANFRED WRAP AROUND IT. CDI. TIBIAL PULSE STRONG AND WARM. NO REDNESS NOTED. PT DENIES SHORTNESS OF BREATH. TOLERATING PO WELL. CALL LIGHT IN REACH. ALL BELONGINGS BROUGHT TO PT FROM PREVIOUS ROOM.
[2024-10-31] MEDS ORDERED: OxyCODONE 5 mg/Acetamin 325 mg TABLET PO PRN ×2 (16:30→19:15)
[2024-10-31] MEDS ORDERED: Vancomycin HCL 1,000 MG in NS 250 ML IV SCH (17:00)
[2024-10-31] MEDS ORDERED: Insulin Glargine-Yfgn 100 Unit/mL 3 ML SYR SC SCH (21:00)
[2024-11-01 03:53] VITALS: BP 101/57
[2024-11-01 05:32] VITALS: BP 92/58
[2024-11-01 06:09] LABS: BASOPHILS ABSOLUTE AUTO 0.07 K/mm3 (0.00-0.23); BASOPHILS PERCENT AUTO 1 % (0-2); EOSINOPHILS PERCENT AUTO 7 % (0-6); Hematocrit 29.5 % (37.0-53.0); Hemoglobin 9.4 g/dL (13.5-17.5); IMMATURE GRAN ABSOLUTE AUTO 0.02 K/mm3 (0.00-0.10); IMMATURE GRAN PERCENT AUTO 0 % (0-1); LYMPHOCYTES ABSOLUTE AUTO 1.17 K/mm3 (0.84-5.20); LYMPHOCYTES PERCENT AUTO 15 % (21-46); MONOCYTES ABSOLUTE AUTO 0.93 K/mm3 (0.16-1.47); MONOCYTES PERCENT AUTO 12 % (4-13); Mean Corpuscular HGB 26.2 pg (26.0-34.0); Mean Corpuscular HGB Conc 31.9 g/dL (31.5-36.5); Mean Corpuscular Volume 82 fL (80-100); Mean Platelet Volume 8.9 fL (9.1-12.4); NEUTROPHILS PERCENT AUTO 66 % (41-73); Platelet Count 284 K/mm3 (150-400); RDW Coefficient Variation 16.8 % (11.7-14.2); RDW Standard Deviation 49.9 fL (35.1-46.3); Red Blood Cell Count 3.59 M/mm3 (4.30-5.90); White Blood Cell Count 8.09 K/mm3 (4.00-11.30)
[2024-11-01 06:34] LABS: Bun/Creatinine Ratio 19.6 (12.0-20.0); Calcium, Blood 8.5 mg/dL (8.5-10.1); Creatinine, Blood 0.82 mg/dL (0.60-1.20); Potassium, Blood 4.1 mmol/L (3.5-5.5)
[2024-11-01 07:10] VITALS: BP 108/66
[2024-11-01] MEDS ORDERED: Polyethylene Glycol 3350 17 gm PO SCH (09:00)
[2024-11-01] MEDS ORDERED: Docusate Sodium 100 MG Cap PO SCH (09:00)
[2024-11-01] MEDS ORDERED: Enoxaparin 40 MG/0.4 ML SYR SC SCH (13:00)
[2024-11-01 14:45] VITALS: BP 136/67
--- NOTE | 2024-11-01 18:00 | NUR ---
SHIFT SUMMARY POD 1 I&D R FOOT AND R 5TH METATARSAL AMPUTATION. A&O X4. PT TOLERATES DIET. DENIES N&V. PAIN MANAGED PER EMAR. PT INDEPENDENT IN ROOM UTILIZING FWW. PLAN TO DISHARGE ON 11/02/24. PT MAKES NEED KNOWN. CALL LIGHT WITHIN REACH.
[2024-11-01 19:13] VITALS: BP 122/68
[2024-11-02 03:47] VITALS: BP 118/61
--- NOTE | 2024-11-02 05:00 | NUR ---
SHIFT SUMMARY PT HAS RESTED MOST OF THE NIGHT, PAIN MANAGED PER EMAR. SURGICAL SITE WNL, DRESSING C/D/I. IV ABX PER ORDERS. PLAN OF CARE REMAINS UNCHANGED. PLAN IS FOR DISCHARGE TODAY. BED IN LOWEST POSITION, CALL LIGHT WITHIN REACH.
--- NOTE | 2024-11-02 06:07 | NUR ---
PT LOSS IV ACCESS THIS AM. PT DIFFICULT START, LAB HAD A DIFFICULT TIME DRAWING BLOOD THIS AM. DR. SCOTT CALLED AND NOTIFIED THAT IV ACCESS WAS LOST AND THAT HE HAD UPCOMING IV ANTIBIOTICS DUE. PLAN IS FOR PT TO DISCHARGE TODAY. HE ORDERED A D/C IV ORDER, AND SWITCHED PT TO PO ANTIBIOTICS.
[2024-11-02 07:03] VITALS: BP 114/67
[2024-11-02 07:07] LABS: BASOPHILS ABSOLUTE AUTO 0.08 K/mm3 (0.00-0.23); BASOPHILS PERCENT AUTO 1 % (0-2); EOSINOPHILS ABSOLUTE AUTO 0.69 K/mm3 (0.00-0.68); EOSINOPHILS PERCENT AUTO 9 % (0-6); Hematocrit 30.7 % (37.0-53.0); Hemoglobin 9.6 g/dL (13.5-17.5); IMMATURE GRAN ABSOLUTE AUTO 0.04 K/mm3 (0.00-0.10); IMMATURE GRAN PERCENT AUTO 1 % (0-1); LYMPHOCYTES ABSOLUTE AUTO 1.45 K/mm3 (0.84-5.20); LYMPHOCYTES PERCENT AUTO 19 % (21-46); MONOCYTES ABSOLUTE AUTO 0.95 K/mm3 (0.16-1.47); MONOCYTES PERCENT AUTO 12 % (4-13); Mean Corpuscular HGB 26.1 pg (26.0-34.0); Mean Corpuscular HGB Conc 31.3 g/dL (31.5-36.5); Mean Corpuscular Volume 83 fL (80-100); Mean Platelet Volume 9.6 fL (9.1-12.4); NEUTROPHILS ABSOLUTE AUTO 4.43 K/mm3 (1.96-9.15); NEUTROPHILS PERCENT AUTO 58 % (41-73); Platelet Count 306 K/mm3 (150-400); RDW Coefficient Variation 16.8 % (11.7-14.2); RDW Standard Deviation 51.6 fL (35.1-46.3); Red Blood Cell Count 3.68 M/mm3 (4.30-5.90); White Blood Cell Count 7.64 K/mm3 (4.00-11.30)
[2024-11-02 07:56] LABS: Bun/Creatinine Ratio 23.7 (12.0-20.0); Calcium, Blood 8.8 mg/dL (8.5-10.1); Creatinine, Blood 0.85 mg/dL (0.60-1.20); Potassium, Blood 4.2 mmol/L (3.5-5.5)
[2024-11-02] MEDS ORDERED: Linezolid 600 MG Tab PO SCH (09:00)
[2024-11-02 14:11] VITALS: BP 136/71
[2024-11-02] MEDS ORDERED: Nicoderm Cq1 EAC1 TOP (14:17)
[2024-11-02] MEDS ORDERED: Percocet 5-3251 EACH PO (14:19)
[2024-11-02] MEDS ORDERED: VISBIOME 112.51 EACH PO (14:19)
[2024-11-02] MEDS ORDERED: CEPH500 PO (14:20)
--- NOTE | 2024-11-02 15:25 | NUR ---
SHIFT/DISCHARGE SUMMARY: PATIENT A/OX4, PLEASANT AND COOPERATIVE c CARE. PATIENT REPORTS PAIN TO R FOOT, MEDICATED FOR PAIN PER EMAR c MOD EFFECT. PATIENT R FOOT DRESSING CHANGED BY DR. SANTACRUZ THIS AM. PER DR. SANTACRUZ 50% WB TO AFFECTED SITE, AND HE WILL SEE PATIENT AT HIS OFFICE ON Monday11/04/24 FOR F/U. PATIENT DENIES CP/PRESSURE, SOB, N/V AND DIZZINESS. PATIENT HAS GOOD APPETITE, CONTINENT OF BLADDER, AMBULATES TO BATHROOM c FWW INDEPENDENTLY. PATIENT RECEIVED SCHEDULED MEDS PER EMAR. NO IV ACCESS PER ORDER. VITAL SIGNS REVIEWED. PATIENT DISCHARGE HOME. DISCHARGE INSTRUCTIONS PACKET AND RX HARD SCRIPT GIVEN TO PATIENT. PATIENT EDUCATED ON R FOOT POD#2 METATARSAL AMPUTEE, 50% WB, NEW RX, AND TO F/U c DR. SANTACRUZ (PODIATRY) AND PCP. PATIENT VERBALIZED UNDERSTANDING AND NO FURTHER QUESTIONS. RX WAS FAXED BY [facility] TO [facility] ([facility]). ALL PERSONAL BELONGINGS WERE SENT c THE PATIENT. PATIENT LEFT THE ROOM AT 1505, TRANSPORTED VIA WHEELCHAIR TO PATIENT ENTRANCE.
== END 2024-11-02 15:09 | disposition home or self-care (01) | DRG 617 ==
LOC: ER 20:52 → ERHOLD 23:44 → SURS 23:44 → MEDS 23:44 → SURS 10-31 13:45
PROVIDERS: Family Medicine; Podiatrist Foot & Ankle Surgery; Student in an Organized Health Care Education/Training Program; ADMIT Internal Medicine
PROC: 0Y6X0Z3 Detachment at Right 5th Toe, Low, Open Approach (ICD-10-PCS; principal; 2024-10-31 12:00)
DX: E11.69 Type 2 diabetes mellitus with other specified complication (principal); E87.20 Acidosis, unspecified; L03.115 Cellulitis of right lower limb; M86.8X7 Other osteomyelitis, ankle and foot; T87.43 Infection of amputation stump, right lower extremity; E11.65 Type 2 diabetes mellitus with hyperglycemia; Y83.5 Amputation of limb(s) as the cause of abnormal reaction of the patient, or of later complication, without mention of misadventure at the time of the procedure; E11.621 Type 2 diabetes mellitus with foot ulcer; L97.519 Non-pressure chronic ulcer of other part of right foot with unspecified severity; F17.210 Nicotine dependence, cigarettes, uncomplicated; E78.5 Hyperlipidemia, unspecified; E11.51 Type 2 diabetes mellitus with diabetic peripheral angiopathy without gangrene; G25.81 Restless legs syndrome; M54.9 Dorsalgia, unspecified; G89.29 Other chronic pain; I10 Essential (primary) hypertension; Z89.431 Acquired absence of right foot; Z88.0 Allergy status to penicillin; Z79.899 Other long term (current) drug therapy; Z79.4 Long term (current) use of insulin
CPT/HCPCS: 36415; 73701; 80048; 80053; 80202; 82947; 83605; 83880; 85025; 87040; 87070; 87071; 87075; 87076; 87077; 87147; 87186; 87205; 88305; 96374-59; 96375; 99285-25; A9270; J0692; J1650; J1815; J1885; J2003; J2250; J2270; J2371; J2405; J2704; J2765; J3010; J3370; J7030; J7040; J7042; J7050; J7120; Q9967